=== PATIENT | male | born 1980 | race Two or more races ===

== ENCOUNTER 2021-08-05 06:30 | Emergency (ER) | payer OTHER, SELFPAY ==
[2021-08-05 06:45] VITALS: BP 148/87; PULSE 78; RESP 16; TEMP 37.1; O2SAT 96; BMI 36.6
--- NOTE | 2021-08-05 08:24 | ED.EAR ---
HPI - Ear Problem General Chief complaint: Ear Problems Stated complaint: R/L Ear Infection Time Seen by Provider: 08/05/21 08:24 Source: patient Mode of arrival: ambulatory Limitations: no limitations History of Present Illness HPI Narrative: 40-year-old male presents to the ER with bilateral ear pain that has been worsening for the last 5 days. He also reports some bilateral mild hearing loss, sounds a little bit muffled. He has a generalized headache and some nasal congestion as well. He denies any ear discharge. No recent swimming. No fever or chills. MD Complaint: ear pain Location: bilateral Duration: constant Severity: moderate Relieving factors: nothing Exacerbating factors: chewing, position of head and palpation Discharge from ear: no Associated symptoms ear: decreased hearing, headache and external ear tenderness Treatment prior to arrival: none Related Data Previous Rx's Medication Instructions Recorded amoxicillin 875 mg tablet 875 mg PO BID #14 tab 08/05/21 ciprofloxacin 0.2 %-hydrocortisone 3 drp OTIC (EARS) BID 7 Days #10 ml 08/05/21 1 % ear drops,suspension (Cipro HC) ibuprofen 800 mg tablet 800 mg PO Q8H PRN #14 tab 08/05/21 Allergies Allergy/AdvReac Type Severity Reaction Status Date / Time No Known Allergies Allergy Verified 08/05/21 08:29 Review of Systems Review of Systems: Constitutional: No Fever, No Chills ENT/Mouth: + sore throat, + Rhinorrhea, No Swallowing Difficulty, +Ear pain, +Hearing loss, No nasal discharge Eyes: No Eye Pain, No Swelling, No Redness Cardiovascular: No Chest Pain, No SO Respiratory: + Cough, No Sputum Gastrointestinal: No Nausea, No Vomiting Musculoskeletal: No joint pain, No Myalgias Neuro: No Weakness, No Numbness, No Dizziness, + Headache Heme/Lymph: No Bruising, + Lymphadenopathy PMFSH Past Medical History Attestation statement: The following information was validated with the patient. Medical History (Updated 08/05/21 @ 08:32 by RICHAR Bradford) No known health problems Social History Social History Advance Directives: No Advance Directives Information Provided: No Physical Exam Vital Signs: Vital Signs: Last Vital Signs Temp 98.8 F 08/05/21 06:45 Pulse 78 08/05/21 06:45 Resp 16 08/05/21 06:45 BP 148/87 H 08/05/21 06:45 Pulse Ox 96 08/05/21 06:45 Body Mass Index 36.6 Appearance: Alert. Oriented X3. No acute distress. Eyes: Pupils equal, round and reactive to light. ENT: Pharynx with moderate generalized erythema, tonsillar swelling without exudate, uvula midline. bilateral EAC's are swollen, tender and erythematous but patent. Bilateral TM's are erythematous, bulging with effusion present. loss of landmarks bilaterally. Nasal turbaintes are erythematous and swollen. Neck: Normal inspection. Neck supple. Palpable postauricular lymphadenopathy noted bilaterally CVS: Normal heart rate and rhythm. Pulses normal. Respiratory: No respiratory distress. Breath sounds normal. Skin: Skin warm and dry. Normal skin color. Normal skin turgor. No rashes. Extremities: No lower extremity edema. Neuro: Oriented X 3. Grossly nonfocal. Course Course Course Narrative: 40-year-old male presenting with bilateral ear pain for the last 4-5 days. His exam is consistent with bilateral acute otitis externa as well as otitis media. No need for a wick as his canals are patent. Will treat with both topical and oral antibiotics for 1 week. He is encouraged follow-up with his primary care doctor. He was advised not to get any water in his ears. Stable for discharge home. Discharge Plan Discharge Clinical Impression: Otitis externa Qualifiers: Otitis externa type: diffuse Chronicity: acute Laterality: bilateral Qualified Code(s): H60.313 - Diffuse otitis externa, bilateral Otitis media Qualifiers: Otitis media type: suppurative Chronicity: acute Laterality: bilateral Recurrence: non-recurrent Spontaneous tympanic membrane rupture: without spontaneous rupture Qualified Code(s): H66.003 - Acute suppurative otitis media without spontaneous rupture of ear drum, bilateral Patient Disposition: Home, Self-Care Instructions: Otitis Externa (ED), Ear Infection (ED) Additional Instructions: Take the prescribed antibiotics as directed. Use the prescribed antibiotic drops in her ears two time per day for one week. Do not get any water in your ears. Follow up with your doctor in 1 week. If you develop new or worsening symptoms call 911 or come back to the ER for further evaluation. Prescriptions: New amoxicillin 875 mg tablet 875 mg PO BID Qty: 14 RF: 0 Cipro HC 0.2-1 % drops,suspension 3 drp otic (ears) BID 7 Days Qty: 10 RF: 0 ibuprofen 800 mg tablet 800 mg PO Q8H PRN (Reason: pain) Qty: 14 RF: 0 Stand Alone Forms: Work/School Release Interventions: ED Discharge Assessment Last Done: 08/05/21 08:45 Discharge Date/Time: 08/05/21 08:50
== END 2021-08-05 08:50 | disposition home or self-care (01) ==
LOC: HO.ED 08:42
PROVIDERS: Emergency Provider Emergency Medicine Emergency Medical Services
DX: H60.313 Diffuse otitis externa, bilateral (principal); H66.003 Acute suppurative otitis media without spontaneous rupture of ear drum, bilateral; H92.03 Otalgia, bilateral; Z79.899 Other long term (current) drug therapy
CPT/HCPCS: 99283

== ENCOUNTER 2023-05-02 14:28 | Outpatient (AMB) | payer OTHER, SELFPAY ==
--- NOTE | 2023-05-02 14:46 | AM.OFFWIN_ITS ---
Intake Vital Signs 05/02/23 14:49 BP 130/80 Blood Pressure Location Lt brachial Position Sitting Pulse 89 Pulse Source Pulse Oximeter Temp 98 F Temp Source Temporal Artery Scan Pulse Oximetry (%) 98 Oxygen Delivery Method Room Air Intake Visit Reasons: EP pain in waist/lower back (lobby) Intake Note: Pt is here c/o lower back and waist pain. Pt states he had two fractures in his right foot years ago and now feels like he may have irritated the fracture. Pt states he has been in pain for two weeks. Pt states he has never had back pain like he does now. Patient Tobacco Use Status: Never used Tobacco Allergies No Known Allergies Allergy (Verified 05/02/23 14:49) Do you need a note to return to daycare/school/sports/work: No HPI EP pain in waist/lower back (lobby) HPI Details Patient presents with pain in his right lateral leg. He describes it as starting in his calf and shooting up to his waist. He denies low back pain he does point to the buttocks is of area of pain as well along the lateral hip, knee and calf. He notes remote history of foot fracture there is no surgery done. 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 [facility] Medical History (Updated 08/06/21 @ 00:02 by Background Shayna) No known health problems Social History Patient Tobacco Use Status: Never used Tobacco Review of Systems Const Reports as per HPI and Reports no additional complaints Musc Reports no additional complaints and Reports as per HPI Skin/Breast Denies lesions Neuro Reports no additional complaints and Reports as per HPI Physical Exam Vital Signs: Last Vital Signs Temp 98 F 05/02/23 14:49 Pulse 89 05/02/23 14:49 BP 130/80 05/02/23 14:49 Pulse Ox 98 05/02/23 14:49 Oxygen Delivery Method Room Air 05/02/23 14:49 Const General: cooperative, comfortable and no acute distress Orientation/consciousness: patient oriented x3 Resp Effort & Inspection: normal respiratory effort Auscultation: clear to auscultation bilaterally Cardio Rate: regular rate Rhythm: regular rhythm Heart sounds: S1 normal heart sound present and S2 normal heart sound present General: Yes no CVA tenderness Back/Spine/Pelvis Back: no CVA tenderness Thoracic/Lumbar Spine: thoracic and lumbar spine normal to inspection, thoraco- lumbar ROM normal, straight leg raise negative bilaterally and No paraspinal muscle tenderness Pelvis: sciatic notch tenderness on the right (Mild) Skin General skin exam: no rashes or lesions noted Neuro General: patient oriented x3 Extrem General: Yes normal to inspection and Yes full ROM Right lower extremity: normal to inspection, full ROM, normal capillary refill, hip/thigh (Mild GT tenderness), knee (Mild lateral knee tenderness patient points to posterior knees area of pain) Details: normal ROM and knee ligament exam normal; no swelling and lower leg Details: normal to inspection and no edema; no erythema, no tenderness and no localized swelling; no cyanosis, no edema and joint enlargement noted Assessment & Plan Assessment & Plan (1) Leg pain, lateral: Code(s): M79.606 - Pain in leg, unspecified Qualifiers: Laterality: right Qualified Code(s): M79.604 - Pain in right leg Plan: Pain seems to be overuse related or tendinitis of such 1 of the lateral tendons of the lower extremity. Will start him on a course of ibuprofen along with phy sical therapy. Follow-up with PCP if symptoms do not improve. Orders: Orders PT Evaluation and Treatment Today M79.606 - Pain in leg, unspecified Medications: New ibuprofen TID x 3 weeks for left knee pain then PRN thereafter for pain 800 mg PO TID 90 tabs 0RF Coding Level of Care Code Est Pt Level 3 (00249) Diagnoses Leg pain, lateral M79.604 Laterality: right
[2023-05-02 14:49] VITALS: BP 130/80; PULSE 89; TEMP 36.6; O2SAT 98
== END 2023-05-02 15:07 | disposition home or self-care (01) ==
PROVIDERS: Visit Provider Physician Assistant
DX: M79.604 Pain in right leg (principal)
CPT/HCPCS: 99213

== ENCOUNTER 2023-07-31 13:42 | Emergency (ER) | payer OTHER, SELFPAY ==
--- NOTE | ~2023-07-31 | XR_ITS ---
EXAMINATION: XR ANKLE, LEFT CLINICAL INFORMATION: Pain, fall COMPARISON: None available. TECHNIQUE: AP, lateral, and mortise views of the left ankle. FINDINGS: There is soft tissue swelling over the lateral malleolus. On the oblique view, there is question of a small chip fracture off the lateral malleolus medially projected over the lateral gutter of the ankle mortise. Joint spaces are within normal limits. There is a small ankle joint effusion. Posterior plantar calcaneal spur and Achilles enthesophyte are noted. XR/XR ankle LT min 3V IMPRESSION: 1. Question of small chip fracture off the lateral malleolus medially projected over the lateral gutter of the ankle mortise. 2. Small ankle joint effusion.
--- NOTE | ~2023-07-31 | XR_ITS ---
EXAMINATION: XR FOOT, LEFT CLINICAL INFORMATION: Trauma. Pain. COMPARISON: None available. TECHNIQUE: AP, lateral, and oblique views of the left foot. FINDINGS: There is no acute abnormality. No fracture. No dislocation. Joint spaces are normal. Small plantar calcaneal spur. Small spur at the posterior calcaneus at the insertion of the Achilles tendon. XR/XR foot LT min 3V IMPRESSION: No acute abnormality of the foot.
[2023-07-31 14:08] VITALS: BP 130/79; PULSE 75; RESP 18; TEMP 36.7; O2SAT 76; BMI 38.4
[2023-07-31 15:33] VITALS: PULSE 67; RESP 18; O2SAT 98
--- NOTE | 2023-07-31 15:33 | ED_ITS ---
HPI - Extremity Injury (Lower) General Chief Complaint: Extremity Injury, Lower Stated Complaint: L ankle injury,cracked Time Seen by Provider: 07/31/23 15:32 Source: patient, RN notes reviewed and old records reviewed Mode of arrival: ambulatory History of Present Illness HPI Narrative: 42-year-old male with no significant past medical history presenting to the ED complaining of left ankle pain s/p twisting while at work [employer]. Reports accidentally stepped in ditch. Denies fall all the way to ground, head trauma or LOC. reports associated paresthesias. Denies weakness with even MD complaint: ankle injury Related Data Previous Rx's Medication Instructions Recorded ibuprofen 800 mg tablet 800 mg PO TID #90 tabs 05/02/23 Allergies Allergy/AdvReac Type Severity Reaction Status Date / Time No Known Allergies Allergy Verified 05/02/23 14:49 Review of Systems 2 Review of Systems: Constitutional: No Fever, No Chills ENT/Mouth: No Ear Pain, No Nasal Congestion, No sore throat, No Rhinorrhea, No Swallowing Difficulty Cardiovascular: No Chest Pain, No SOB Respiratory: No Cough Gastrointestinal: No Nausea, No Vomiting, No Abdominal pain Musculoskeletal: + joint pain, No Myalgias, + Joint Swelling Skin: No Skin Lesions, No rash Neuro: No Weakness, No Numbness, No Paresthesias, no head trauma, no LOC Yes all other systems are reviewed and are negative Constitutional: Constitutional: Reports as per HPI [facility] Past Medical History Attestation statement: The following information was validated with the patient. Source: old records reviewed Medical History No known health problems Social History Social History Patient Tobacco Use Status: Never used Tobacco Smoked in Last 30 Days: No Use of substances other than those prescribed or required for medical reasons: No Advance Directives: No Advance Directives Information Provided: No Physical Exam Vital Signs: Vital Signs: Last Vital Signs Temp 98 F 07/31/23 16:43 Pulse 63 07/31/23 16:43 Resp 18 07/31/23 16:43 BP 146/86 H 07/31/23 16:43 Pulse Ox 97 07/31/23 16:43 O2 Del Method Room Air 07/31/23 16:43 BMI result Body Mass Index 38.4 Const: General: cooperative, healthy appearing and no acute distress Orientation/consciousness: patient oriented x3 Limitations: no limitations HEENT: Head: Yes normal to inspection and Yes atraumatic Ears: hearing grossly normal bilaterally General nose exam: Normal external nose present Face and sinus: Yes normal facial exam Eyes: General: appearance normal, both eyes and all related structures EOM: EOMs intact bilaterally Neck: Neck: Yes normal visual inspection and Yes no meningeal signs Resp: Effort & Inspection: normal respiratory effort and no respiratory distress Cardio: Rate: regular rate Peripheral pulses: popliteal pulses present GI: Inspection: Yes normal to inspection Palpation (GI): Soft to palpation, nontender, no guarding and not rigid : General: Yes no CVA tenderness Back/Spine/Pelvis: Back: no CVA tenderness Skin: Rashes: no rashes Wounds: no wounds Neuro: General: patient oriented x3, tone normal and no meningeal signs Cranial nerves: Yes CN's II-XII intact bilaterally Gait exam (Neuro): Normal gait present Extrem: Other: Left ankle with mild swelling. Diffusely tender to palpation. Limited ROM secondary to pain. Proximal foot with tenderness to palpation. Neurovascularly intact. No crepitus. Knee nontender with full range of motion intact. Course Course Course Narrative: 1810--XR ankle LT min 3V IMPRESSION: 1. Question of small chip fracture off the lateral malleolus medially projected over the lateral gutter of the ankle mortise. 2. Small ankle joint effusion. > patient placed in walking boot. Recommended orthopedic follow-up XR foot LT min 3V IMPRESSION: No acute abnormality of the foot. Results discussed with patient including worrisome signs and symptoms and strict return precautions, and when to return to the emergency department. They verbalized understanding and feel safe for discharge at this time. Medical Decision Making Medical Decision Making MDM Narrative: 42-year-old male with no significant past medical history presenting to the ED complaining of left ankle pain s/p twisting while at work [employer]. On exam vital signs stable, NAD, nontoxic appearing, physical exam as noted above. Concern for ankle sprain versus fracture. Low suspicion for septic joint/arthritis Plan: X-rays Please refer to course for remaining clinical decision making, interpretation of labs/imaging results, and discussions with consultants and/or family members. Differential Diagnosis Differential Diagnoses: The differential diagnosis associated with the presentation includes As above Admission/Observation Consideration of admission/observation: Escalation of care including admission/observation considered Lab Data MDM Lab Attestation statement: I reviewed the patient's lab results. Independent Interpretation I performed an independent interpretation of an: Plain X-Ray Radiology Impression Discussion of test interpretation with radiology: I have reviewed the radiologist's reading. External Record Review External record reviewed: Inpatient record, Office record, Outpatient record, Prior outpatient labs, Prior outpatient radiology, Primary care record and Outside ED record Tests considered The following testing was considered but not selected: As above Prescription Management I considered prescription management with: Pain Medication Discharge Plan Discharge Clinical Impression: Lateral malleolar fracture Patient Disposition: Home, Self-Care Instructions: Ankle Fracture (DC) Additional Instructions: You have a small chip fracture off your lateral ankle. Please wear walking boot at all times, you may take off only to shower and sleep Please call orthopedics for follow-up next week. Ice and elevate. Take Tylenol and Motrin. If symptoms persist or worsen or pain is unbearable return to the ED Prescriptions: No Action ibuprofen 800 mg tablet 800 mg PO TID Qty: 90 0RF Rx Instructions: TID x 3 weeks for left knee pain then PRN thereafter for pain Referrals: [facility] [Provider Group] - 1 week
[2023-07-31 16:43] VITALS: BP 146/86; PULSE 63; RESP 18; TEMP 36.6; O2SAT 97
== END 2023-07-31 18:35 | disposition home or self-care (01) ==
PROVIDERS: Emergency Provider Student in an Organized Health Care Education/Training Program
DX: S82.62XA Displaced fracture of lateral malleolus of left fibula, initial encounter for closed fracture (principal); W18.42XA Slipping, tripping and stumbling without falling due to stepping into hole or opening, initial encounter; Y93.9 Activity, unspecified; Y92.9 Unspecified place or not applicable; Y99.0 Civilian activity done for income or pay
CPT/HCPCS: 73610; 73630; 99284

== ENCOUNTER 2023-08-14 14:28 | Outpatient (AMB) | payer OTHER, SELFPAY ==
--- NOTE | 2023-08-14 14:30 | MHC.PC.OV ---
Vital Signs 08/14/23 14:33 Height 5 ft 10 in Weight 266 lb BMI 38.2 BP 138/80 Blood Pressure Location Rt brachial Position Sitting Pulse 78 Pulse Source Pulse Oximeter Pulse Oximetry (%) 98 Oxygen Delivery Method Room Air Intake Visit Reasons: NPV-requesting phy Allergies No Known Allergies Allergy (Verified 08/14/23 14:33) Medication List - Last Reconciled 08/14/23 by MABEL López ibuprofen 800 mg PO TID Tobacco use date assessed: 08/14/23 Dental Screening Dental Screen Date: 08/14/23 Did you have a dental visit in the last 12 months?: No Did you have a dental problem in the last 6 months where you did not have access to dental care?: No Was dental information given to patient?: No HPI NPV-requesting phy HPI Details New pt is here for a PE. Will order labs. Pt's father was diagnosed with prostate cancer at age 60. Will order PSA. Denies dribbling with urination, weak stream, and frequent nocturia. [facility] Medical History No known health problems Social History Housing: House Patient Tobacco Use Status: Former Tobacco user e-Cigarette/Vaping Use: Never Used service: No Current occupational status: employed Cognitive needs: No Hearing needs: No Vision needs: No Questionnaire AUDIT C Alcohol Use Questionnaire (AUDIT-C) 1. How often do you have a drink containing alcohol?: Monthly or less 2. How many drinks containing alcohol do you have on a typical day when you are drinking?: 1 or 2 3. How often do you have six or more drinks on one occasion?: Never Total Score: 1 Score Reviewed/Action Taken: No Review of Systems Const Denies chills and Denies fever(s) Eyes Denies blurry vision ENT Denies vertigo, Denies dizziness and Denies sore throat Card Denies chest pain at rest, Denies chest pain with activity, Denies diaphoresis, Denies dyspnea and Denies dyspnea on exertion Resp Denies cough, Denies dyspnea, Denies dyspnea on exertion and Denies wheezing GI Denies abdominal pain, Denies melena, Denies hematochezia, Denies constipation, Denies diarrhea and Denies loose stools Denies hematuria Musc Denies numbness and Denies tingling Skin/Breast Denies lesions Neuro Denies vertigo, Denies dizziness, Denies numbness and Denies tingling Psych Denies anxiety, Denies depression, Denies homicidal ideation, Denies suicidal ideation and Denies other (substance abuse) Aller/Immun Denies wheezing Physical exam (Primary Care) Vital Signs: Last Vital Signs Pulse 78 08/14/23 14:33 BP 138/80 08/14/23 14:33 Pulse Ox 98 08/14/23 14:33 Oxygen Delivery Method Room Air 08/14/23 14:33 BMI result Body Mass Index 38.2 Tobacco/Smoking Status: Tobacco use Status Tobacco use date assessed 08/14/23 08/14/23 14:40 Patient Tobacco Use Status Former Tobacco user 08/14/23 14:40 e-Cigarette/Vaping Use Never Used 08/14/23 14:40 Const General: cooperative Nutritional Appearance: obese Orientation/consciousness: patient oriented x3 HENMT Head: Yes normal to inspection, Yes normocephalic and Yes atraumatic Ears: TM's normal bilaterally Eyes General: appearance normal, both eyes and all related structures Alignment and Position: alignment normal and position normal Neck Neck: Yes normal visual inspection and Yes no lymphadenopathy Thyroid: Thyroid normal Resp Effort & Inspection: normal respiratory effort Auscultation: clear to auscultation bilaterally Cardio Rate: regular rate Rhythm: regular rhythm Heart sounds: S1 normal heart sound present, S2 normal heart sound present and no murmurs GI Palpation (GI): Soft to palpation and nontender Auscultation: normal bowel sounds Male General Exam: Yes normal external exam Penis: normal penis Scrotum: scrotum normal, testes descended bilaterally and no inguinal hernias Testes: no testicular mass Skin Rashes: no rashes Neuro General: patient oriented x3, moves all extremities, no focal motor deficits and deep tendon reflexes 2+ bilaterally Romberg Test: Negative Extrem Other: orthopedic air cast to LLE Psych Appearance: grossly normal Mental Status: mental status grossly normal Speech and movement: Normal speech and movement present Affect: normal affect Attitude: cooperative Thought process: Normal thought process present Thought content: Normal thought content present Insight: Good insight present (Psych) Judgement: Good judgement present (Psych) Assessment and Plan Assessment & Plan (1) Physical exam: Code(s): Z00.00 - Encounter for general adult medical examination without abnormal findings Plan: Labs ordered (2) Screening PSA (prostate specific antigen): Code(s): Z12.5 - Encounter for screening for malignant neoplasm of prostate Plan: PSA ordered Plan The patient agreed to the use of a medical device engineer for this encounter. Scribed for TOMMY Cobb-LUPE by Zhane Porras medical device engineer, on 08/14/2023 at 14:50 EST. Orders: Orders Comprehensive [place]. Panel Fast Today Z00.00 - Encounter for general adult medical examination without abnormal findings Lipid Panel Today Z00.00 - Encounter for general adult medical examination without abnormal findings Complete Blood Count Auto Diff Today Z00.00 - Encounter for general adult medical examination without abnormal findings TSH reflex Free T4 Today Z00.00 - Encounter for general adult medical examination without abnormal findings UA CC w/rflx Micro + Cult Today Z00.00 - Encounter for general adult medical examination without abnormal findings Prostate Specific Antigen Scr Today Z12.5 - Encounter for screening for malignant neoplasm of prostate Coding Level of Care Code New Pt Prev Care 40-64y(07573) Diagnoses Physical exam Z00.00 Screening PSA (prostate specific antigen) Z12.5
[2023-08-14 14:33] VITALS: BP 138/80; PULSE 78; O2SAT 98; BMI 38.2
== END 2023-08-14 15:04 | disposition home or self-care (01) ==
PROVIDERS: Visit Provider Nurse Practitioner Family
DX: Z00.00 Encounter for general adult medical examination without abnormal findings (principal); Z12.5 Encounter for screening for malignant neoplasm of prostate
CPT/HCPCS: 99386

== ENCOUNTER 2023-08-15 08:28 | Outpatient (AMB) | payer OTHER, SELFPAY ==
--- NOTE | 2023-08-15 08:29 | A.OFFVIS_ITS ---
Intake Intake Visit Reasons: fc- Lt Lateral malleolar fracture Intake Note: Caity is a 42 year old male who presents today for a evaluation for his left ankle pain, DOI 07/31/23. Patient reports he stepped in ditch. He states that his injury was a work related injury claim #[id number]. Patient reports having some numbness on the lateral aspect of his foot. He has been taking pain medication which is provding him with relief. Allergies No Known Allergies Allergy (Verified 08/15/23 08:36) HPI fc- Lt Lateral malleolar fracture HPI Details 42-year-old male who presents in the off ice today for an evaluation of left ankle pain. The patient presented to the ED on 07/31/2023 status post twisting his ankle while at work after stepping in a ditch. X-rays of the left ankle were obtained. He was placed in a walking boot and referred to orthopedics. While in the office today the patient reports some numbness on the lateral aspect of the left foot. He confirms taking pain medication which is providing him with relief. [facility] Medical History No known health problems Social History Housing: House Patient Tobacco Use Status: Former Tobacco user e-Cigarette/Vaping Use: Never Used service: No Current occupational status: employed Cognitive needs: No Hearing needs: No Vision needs: No Review of Systems Const All systems reviewed & are unremarkable except as noted in HPI and below Physical Exam Const General: cooperative and no acute distress Orientation/consciousness: patient oriented x3 Resp Effort & Inspection: normal respiratory effort and able to speak in complete se ntences Cardio Peripheral pulses: Peripheral pulses 2+ throughout Skin General skin exam: no rashes or lesions noted Neuro General: patient oriented x3 Extrem Other: Left ankle: Lateral malleolus edema accompanied by tenderness to palpation. No tenderness to palpation over the medial malleolus. Able to dorsiflex and plantarflex with out difficulties. Sensation intact. Pedal pulse intact. Assessment & Plan Assessment & Plan (1) Left ankle sprain: Code(s): S93.402A - Sprain of unspecified ligament of left ankle, initial encounter Qualifiers: Encounter type: initial encounter Involved ligament of ankle: unspecified ligament Qualified Code(s): S93.402A - Sprain of unspecified ligament of left ankle, initial encounter Plan Mr. Ramires is a 42-year-old male who presents in the office today for an evaluation of left ankle pain. The patient presented to the ED on 07/31/2023 status post twisting his ankle while at work after stepping in a ditch. X-rays of the left ankle were obtained. He was placed in a walking boot and referred to orthopedics. While in the office today the patient reports some numbness on the lateral aspect of the left foot. He confirms taking pain medication which is providing him with relief. The patient was given a short walking boot in the ED, however, this is typically used to treat foot injuries. Therefore, the patient was given a tall walking boot, off the shelf, while in the office today. He will work with physical therapy. He was given an out of work note until follow up. Follow up will be in 4 weeks, or sooner if needed. X-rays of the left ankle, obtained on 07/31/2023, revealed: 1. Question of small chip fracture off the lateral malleolus medially projected over the lateral gutter of the ankle mortise. 2. Small ankle joint effusion. Orders: Orders PT Evaluation and Treatment Today S93.402A - Sprain of unspecified ligament of left ankle, initial encounter Patient Instructions: Scribed for Elba Alford PA-C by Inés Rodarte center medical and lab director, on 08/15/2023 at 8:29 am, EST. Coding Level of Care Code New Pt Level 4 (94712) Diagnoses Sprain of left ankle, unspecified ligament, initial encounter S93.402A Encounter type: initial encounter Involved ligament of ankle: unspecified ligament
== END 2023-08-15 09:13 | disposition home or self-care (01) ==
PROVIDERS: Visit Provider Physician Assistant
DX: S93.402A Sprain of unspecified ligament of left ankle, initial encounter (principal)
CPT/HCPCS: 99203

== ENCOUNTER → 2023-08-15 08:28 | Outpatient (BNVA) | payer OTHER, SELFPAY | PROVIDERS: Visit Provider Physician Assistant | DX: S93.402A Sprain of unspecified ligament of left ankle, initial encounter (principal) | CPT/HCPCS: 99202 ==

== ENCOUNTER 2023-08-18 09:39 | Outpatient (REF) | payer OTHER, SELFPAY ==
[2023-08-18 11:22] LABS: MANUAL DIFF FLAG NO
[2023-08-18 11:26] LABS: Basophils Percent Auto 0.6 % (0-2); Eosinophils Absolute Auto 0.2 X10*3/uL (0.0-0.4); Eosinophils Percent Auto 2.9 % (0-4); Hematocrit 44.1 % (42.0-52.0); Hemoglobin 14.6 g/dl (14.0-18.0); Imm Gran Abs Auto 0.02 X10*3/uL (0.00-0.03); Imm Gran Pct Auto 0.3 % (0.0-0.4); Lymphocytes Absolute Auto 1.8 X10*3/uL (1.2-4.9); Lymphocytes Percent Auto 29.3 % (20-40); Mean Corpuscular HGB Conc 33.1 g/dl (31.0-36.0); Mean Corpuscular Hemoglobin 28.5 pg (27.0-33.0); Mean Platelet Volume 12.4 fL (9.4-12.4); Monocytes Absolute Auto 0.6 X10*3/uL (0.1-1.2); Neutrophils Absolute Auto 3.6 x10*3/uL (2.0-8.3); Neutrophils Percent Auto 57.9 % (45-73); Platelet Count 239 X10*3/uL (160-400); Red Blood Count 5.13 X10*6/uL (4.60-5.80); Red Cell Distribution Width 12.9 % (11.0-16.0); White Blood Count 6.2 X10*3/uL (4.8-10.8)
[2023-08-18 12:34] LABS: Alanine Aminotransferase 38 U/L (0-40); Albumin Level 4.5 g/dL (3.5-5.0); Alkaline Phosphatase 64 U/L (39-117); Anion Gap 14 (12-20); Aspartate Amino Transferase 33 U/L (5-37); Bilirubin Total 0.3 mg/dL (0.0-1.0); Blood Urea Nitrogen 12 mg/dL (9-16); Calcium 9.3 mg/dL (8.4-10.2); Carbon Dioxide 27 mmol/L (22-29); Chloride 102 mmol/L (96-108); Cholesterol 235 mg/dL (<200); Estimated Glomerular Filt Rate > 60; Glucose Fasting 98 mg/dL (60-99); HDL Cholesterol 44 mg/dL (>40); LDL Cholesterol Calculated 157 mg/dL (<100); Potassium 3.9 mmol/L (3.3-5.1); Sodium 139 mmol/L (135-145); TSH reflex Free T4 2.58 uIU/mL (0.32-4.0); Total Protein 7.7 g/dL (6.5-8.0); Triglycerides 173 mg/dL (<150)
[2023-08-18 13:14] LABS: Appearance Urine Clear; Color Urine Yellow; Glucose Urine UA Negative (Negative); Leukocyte Esterase Urine Negative (Negative); Nitrite Urine Negative (Negative); PH 5.5 (5.0-9.0); Urine Blood Negative (Negative); Urine Ketones Negative (Negative); Urine Protein Negative (Neg-Trace)
== END 2023-08-18 09:40 | disposition home or self-care (01) ==
LOC: HO.HMGCLDS 09:39
PROVIDERS: PCP Nurse Practitioner Family; Visit Provider Nurse Practitioner Family
DX: Z00.00 Encounter for general adult medical examination without abnormal findings (principal); Z12.5 Encounter for screening for malignant neoplasm of prostate; E78.5 Hyperlipidemia, unspecified; Z13.0 Encounter for screening for diseases of the blood and blood-forming organs and certain disorders involving the immune mechanism; Z13.29 Encounter for screening for other suspected endocrine disorder
CPT/HCPCS: 36415; 80053; 80061; 81003; 84153; 84443; 85025

== ENCOUNTER 2023-09-14 12:48 | Outpatient (AMB) | payer OTHER, SELFPAY ==
--- NOTE | 2023-09-14 13:12 | MHC.OFFVIS ---
Intake Vital Signs 09/14/23 13:13 Height 5 ft 10 in Weight 266 lb BMI 38.2 Intake Visit Reasons: ov- Lt Lateral malleolar fracture Intake Note: Caity 42 yr old male presents today for his follow up visit for his left ankle sprain. Patient states he is cont' to have on and off pain. Cont's to have swelling. States he feels like he is not ready to return to work . He started P.T yesterday. Allergies No Known Allergies Allergy (Verified 09/14/23 13:14) HPI ov- Lt Lateral malleolar fracture HPI Details 42-year-old male who presents in the office today for a follow up of a left ankle sprain, which occurred on 07/31/2023 status post twisting his ankle while at work after stepping in a ditch. The patient reports having intermittent pain. He rates his pain as a 7/10 while in the office today. He states the pain is when he points his toes down. He continues to have edema. At this time the patient does not feel he is ready to return to work. He states he has his first therapy session yesterday. He states his work consist of 12-14 hour work days. [facility] Medical History No known health problems Social History (Reviewed 09/14/23 @ 13:14 by Gisselle Glass [facility]) Housing: House Patient Tobacco Use Status: Former Tobacco user e-Cigarette/Vaping Use: Never Used service: No Current occupational status: employed Cognitive needs: No Hearing needs: No Vision needs: No Review of Systems Const All systems reviewed & are unremarkable except as noted in HPI and below Physical Exam Vital Signs: BMI result Body Mass Index 38.2 Const General: cooperative, healthy appearing and no acute distress Resp Effort & Inspection: normal respiratory effort and able to speak in complete sentences Cardio Rate: regular rate Peripheral pulses: Peripheral pulses 2+ throughout GI Palpation (GI): Soft to palpation Skin Lesions: no lesions Rashes: no rashes Extrem Other: Left ankle: Normal to inspection. Very slight limited ROM with inversion and eversion. Full dorsiflexion and plantarflexion. NVI. Assessment & Plan Assessment & Plan (1) Left ankle sprain: Code(s): S93.402A - Sprain of unspecified ligament of left ankle, initial encounter Qualifiers: Encounter type: initial encounter Involved ligament of ankle: unspecified ligament Qualified Code(s): S93.402A - Sprain of unspecified ligament of left ankle, initial encounter Plan Mr. Ramires is a 42-year-old male who presents in the office today for a follow up of a left ankle sprain, which occurred on 07/31/2023 status post twisting his ankle while at work after stepping in a ditch. The patient reports having intermittent pain. He rates his pain as a 7/10 while in the office today. He states the pain is when he points his toes down. He continues to have edema. At this time the patient does not feel he is ready to return to work. He states he has his first therapy session yesterday. He states his work consist of 12-14 hour work days. The patient will continue to work with physical therapy. I explained to the patient that he can have edema for up to a year after the injury. The goal will be to begin to wean out of the boot in the next two weeks. He was given an out of work note until follow up. Follow up will be in 4 weeks, or sooner if needed. X-rays of the left ankle which were obtained while in the office today and were reviewed by me, Elba Alford PA-C, revealed routine healing of a chip fracture in the left ankle. Orders: Orders XR ankle LT min 3V Today M25.579 - Pain in unspecified ankle and joints of unspecified foot Patient Instructions: Scribed for Elba Alford PA-C by Inés Rodarte medical communication specialist, on 09/14/2023 at 12:50 pm, EST. Coding Level of Care Code Est Pt Level 3 (71842) Diagnoses Sprain of left ankle, unspecified ligament, initial encounter S93.402A Encounter type: initial encounter Involved ligament of ankle: unspecified ligament
[2023-09-14 13:13] VITALS: BMI 38.2
== END 2023-09-14 13:17 | disposition home or self-care (01) ==
PROVIDERS: Visit Provider Physician Assistant
DX: S93.402A Sprain of unspecified ligament of left ankle, initial encounter (principal)
CPT/HCPCS: 99213

== ENCOUNTER 2023-09-14 12:48 | Outpatient (REF) | payer OTHER, SELFPAY ==
--- NOTE | ~2023-09-14 | XR_ITS ---
EXAMINATION: XR ANKLE, LEFT CLINICAL INFORMATION: Pain COMPARISON: None available. TECHNIQUE: AP, lateral, and mortise views of the left ankle. FINDINGS: No soft tissue swelling or joint effusion. Lateral malleolar chip fracture or questionable previous study not identified currently. Calcaneal spurring and Achilles enthesopathy again noted. XR/XR ankle LT min 3V IMPRESSION: No acute bony pathology.
== END 2023-09-14 12:49 | disposition home or self-care (01) ==
LOC: HO.HOSX 12:48
PROVIDERS: Visit Provider Physician Assistant
DX: S93.402A Sprain of unspecified ligament of left ankle, initial encounter (principal)
CPT/HCPCS: 73610; 99212

== ENCOUNTER 2023-09-19 11:00 | Outpatient (RCR) | payer OTHER, SELFPAY ==
--- NOTE | 2023-09-13 11:53 | MHC.PT.EP ---
[facility] [place] [facility] [place] Office [place] Office [address] [phone] F: [phone] F: [phone] F: [phone] F: [phone] Physical Therapy Plan of Care Date of Evaluation: 09/13/23 Date of Surgery: Diagnosis: Left ankle sprain Assessment: Patient is a 42 year old R handed male who presents with s/s consistent with L ankle sprain/pain. He presents in a high boot. 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 Patient past medical history is otherwise unremarkable. Current impairments include pain, posture, balance, ROM, strength, activity tolerance and functional mobility. Functional limitations include decreased ability to walk, stand, negotiate stairs, lift and carry. Patient is motivated with good rehab potential. Skilled PT will address impairments and functional limitations in order to achieve goals. Frequency and Duration: The patient will be seen 2x/week for 4 weeks Short Term Goals: I with HEP - 2 weeks SLB > 30 - 2 weeks HR single leg 30x - 1 minutes - 2 weeks Fdc Goals: Swelling absent - 4 weeks Strength 5/5 grossly - 4 weeks pain free return to all work activities - 4 weeks LEFS 72/80 - 4 weeks Treatment Plan: Modalities to reduce pain, spasms and effusion. Manual therapy to restore motion and function. Therapeutic exercise to improve strength and flexibility. Neuromuscular re-education for posture and balance. Therapeutic activities to return to functional activities of daily living. Electronically signed by: Tre Cristobal, PT Please sign and return to therapist. Thank you for your referral.
--- NOTE | 2023-10-31 10:58 | MHC.PT.DC ---
[facility] [place] Office [place] Office [place] Office [address] [phone] F: [phone] F: [phone] F: [phone] F: [phone] Physical Therapy Discharge Report Diagnosis: Left ankle sprain Date of Surgery: Date of Evaluation: 09/13/23 Date of Discharge: 10/01/23 Treatments to Date: 2 Cancellations to Date: No Shows to Date: Discharge Status: Independent with HEP Patient Elected to Stop Discharge Summary: Pt elected to stop PT after last visit. 09/19/23: pt progressing well with skilled PT. ROM and strength improving. encouraged him to use boot less and bring shoe next visit. educated him in importance of consistency with HEP. Patient is a 42 year old R handed male who presents with s/s consistent with L ankle sprain/pain. He presents in a high boot. 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 Patient past medical history is otherwise unremarkable. Current impairments include pain, posture, balance, ROM, strength, activity tolerance and functional mobility. Functional limitations include decreased ability to walk, stand, negotiate stairs, lift and carry. Patient is motivated with good rehab potential. Skilled PT will address impairments and functional limitations in order to achieve goals. Electronically signed by: Tre Cristobal, PT Please sign and return to therapist. Thank you for your referral.
== END 2023-10-31 10:58 | disposition home or self-care (01) ==
LOC: HO.PTCHIC 11:00
PROVIDERS: PCP Nurse Practitioner Family; Visit Provider Physician Assistant
DX: S93.402A Sprain of unspecified ligament of left ankle, initial encounter (principal)
CPT/HCPCS: 97110; 97161

== ENCOUNTER 2023-10-19 11:04 | Outpatient (REF) | payer OTHER, SELFPAY ==
--- NOTE | ~2023-10-19 | XR_ITS ---
EXAMINATION: XR ANKLE, LEFT CLINICAL INFORMATION: Left ankle pain COMPARISON: Left ankle x-rays on 09/14/2023 TECHNIQUE: AP, lateral, and mortise views of the left ankle. FINDINGS: BONES: Bony structures are intact. Sharp dorsal and plantar calcaneal spurs are present. There is no focal bone destruction or periosteal reaction seen. JOINTS: Alignment of joints is normal. SOFT TISSUE: Soft tissue is normal. No radiopaque foreign body or abnormal air collection is seen. XR/XR ankle LT min 3V IMPRESSION: 1. Unchanged sharp Calcaneal spurs. 2. No evidence of fracture or dislocation of left ankle.
== END 2023-10-19 11:05 | disposition home or self-care (01) ==
LOC: HO.HOSX 11:04
PROVIDERS: Visit Provider Physician Assistant
DX: S93.402A Sprain of unspecified ligament of left ankle, initial encounter (principal)
CPT/HCPCS: 73610; 99212

== ENCOUNTER 2023-10-19 15:13 | Outpatient (AMB) | payer OTHER, SELFPAY ==
--- NOTE | 2023-10-19 15:28 | MHC.OFFVIS ---
Intake Vital Signs 10/19/23 15:29 Height 5 ft 10 in Weight 266 lb BMI 38.2 Intake Visit Reasons: OV- Lt Lateral malleolar fracture-follow up Intake Note: Caity 42 yr old male presents today for his follow up visit for his left ankle sprain, 07/31/23. Patient states he only attended to 3 P.T sessions due to becoming sick. Currently states he cont's to have pain and swelling. Cont's to use his cam walker boot. Allergies No Known Allergies Allergy (Verified 10/19/23 15:33) HPI OV- Lt Lateral malleolar fracture-follow up HPI Details 42-year-old male who presents in the office today for a follow up of a left ankle sprain, which occurred on 07/31/2023 status post twisting his ankle while at work after stepping in a ditch. I last saw the patient in the office on 09/14/2023 where he was instructed to continue to work with physical therapy and his goal was to wean out of the walking boot into a supportive sneaker. He was also to remain out of work until follow up. While in the office today the patient reports he has only attended 3 physical therapy sessions due to illness. He reports he continue to have pain and edema. He confirms his continued use of the cam walking boot. [facility] Medical History No known health problems Social History Housing: House Patient Tobacco Use Status: Former Tobacco user e-Cigarette/Vaping Use: Never Used service: No Current occupational status: employed Cognitive needs: No Hearing needs: No Vision needs: No Review of Systems Const All systems reviewed & are unremarkable except as noted in HPI and below Physical Exam Vital Signs: BMI result Body Mass Index 38.2 Const General: cooperative, healthy appearing and no acute distress Resp Effort & Inspection: normal respiratory effort and able to speak in complete sentences Cardio Rate: regular rate Peripheral pulses: Peripheral pulses 2+ throughout GI Palpation (GI): Soft to palpation Skin Lesions: no lesions Rashes: no rashes Extrem Other: Left ankle: Normal to inspection. Tenderness to plapation over the tibal and peroneal tendons. Mild-moderate limited ROM with inversion and eversion. Full dorsiflexion and plantarflexion. NVI. Assessment & Plan Assessment & Plan (1) Left ankle sprain: Code(s): S93.402A - Sprain of unspecified ligament of left ankle, initial encounter Qualifiers: Encounter type: initial encounter Involved ligament of ankle: unspecified ligament Qualified Code(s): S93.402A - Sprain of unspecified ligament of left ankle, initial encounter Plan Mr. Ramires is a 42-year-old male who presents in the office today for a follow up of a left ankle sprain, which occurred on 07/31/2023 status post twisting his ankle while at work after stepping in a ditch. I last saw the patient in the office on 09/14/2023 where he was instructed to continue to work with physical therapy and his goal was to wean out of the walking boot into a supportive sneaker. He was also to remain out of work until follow up. While in the office today the patient reports he has only attended 3 physical therapy sessions due to illness. He reports he continue to have pain and edema. He confirms his continued use of the cam walking boot. Unfortunately, the patient has only attend 2 physical therapy sessions since his last visit in the office. He has also remained in the boot. I feel this has contributed to his significant stiffness of the ankle and is causing him pain. I expressed to the patient that he should come out of the boot as soon as possible and work with physical therapy to regain his painless ROM. I have placed a new order for physical therapy while in the office today. Follow up will be in 4 weeks for a ROM check with anticipation of full ROM at follow up, or sooner if needed. X-rays of the left ankle which were obtained while in the office today and were reviewed by me, Elba Alford PA-C, revealed no acute fracture or dislocation. Orders: Orders XR ankle LT min 3V Today M25.579 - Pain in unspecified ankle and joints of unspecified foot PT Evaluation and Treatment Today S93.402A - Sprain of unspecified ligament of left ankle, initial encounter Patient Instructions: Scribed for Elba Alford PA-C by Inés Rodarte biomedical repair technician, on 10/19/2023 at 3:18 pm, EST. Coding Level of Care Code Est Pt Level 3 (21261) Diagnoses Sprain of left ankle, unspecified ligament, initial encounter S93.402A Encounter type: initial encounter Involved ligament of ankle: unspecified ligament
[2023-10-19 15:29] VITALS: BMI 38.2
== END 2023-10-19 15:50 | disposition home or self-care (01) ==
PROVIDERS: PCP Nurse Practitioner Family; Visit Provider Physician Assistant
DX: S93.402A Sprain of unspecified ligament of left ankle, initial encounter (principal); Z04.2 Encounter for examination and observation following work accident
CPT/HCPCS: 99213

== ENCOUNTER 2023-11-21 13:44 | Outpatient (AMB) | payer OTHER, SELFPAY ==
--- NOTE | 2023-11-21 13:49 | A.OFFVIS_ITS ---
Intake Vital Signs 11/21/23 13:51 Height 5 ft 10 in Weight 266 lb BMI 38.2 Intake Visit Reasons: OV - Left ankle sprain, DOI 07/31/23 Intake Note: Caity is a 42 year old male who presents today for a follow up of his left ankle sprain, DOI 07/31/23. Patient reports he feels like that nothing is helping him. He feels that PT is not giving him relief. Patient wants to know what else he can do to help him relief his pain and his swelling. Hx of icing and antiinflammatories with no relief. Allergies No Known Allergies Allergy (Verified 11/21/23 13:51) HPI OV - Left ankle sprain, DOI 07/31/23 HPI Details 42-year-old male who presents in the off ice today for a follow up of a left ankle sprain, which occurred on 07/31/2023 status post twisting his ankle while at work after stepping in a ditch. I last saw the patient on 10/19/2023 where he has only attended 2 physical therapy sessions and was still in the boot. I encouraged the patient that he needed to come out of the boot and to attend physical therapy to work on ROM. While in the office today the patient reports he has been unable to find relief in anything he has tried. He reports trying icing and anti-inflammatory medication with no relief. He also states physical therapy has not given him any relief. He would like to know what else he is able to do in get relief of his pain and edema. He reports a sharp stinging pain that is ongoing. He states the pain is aching. He states he was sick so he did not attend physical therapy. He states he tried to call them but they told him since he had not been seen in a month he was discharged from therapy. He did not contact our office to inform that he was unable to attend. He states he has an exercise bike at home that he has been using and working on home exercises on his own. Patient discharge from physical therapy at [facility] on 10/01/2023. Physical therapy report states he attended 2 sessions and elected to discontinue physical therapy after his last visit. He reports he has been out of work since the injury. 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 [facility] Medical History No known health problems Social History Housing: House Patient Tobacco Use Status: Former Tobacco user e-Cigarette/Vaping Use: Never Used service: No Current occupational status: employed Cognitive needs: No Hearing needs: No Vision needs: No Review of Systems Const All systems reviewed & are unremarkable except as noted in HPI and below Physical Exam Vital Signs: BMI result Body Mass Index 38.2 Const General: cooperative, healthy appearing and no acute distress Resp Effort & Inspection: normal respiratory effort and able to speak in complete sentences Cardio Rate: regular rate Peripheral pulses: Peripheral pulses 2+ throughout GI Palpation (GI): Soft to palpation Skin Lesions: no lesions Rashes: no rashes Extrem Other: Left ankle: Normal to inspection. Tenderness to plapation over the peroneal tendon. No limitations in ROM with inversion, eversion, dorsiflexion or plantarflexion. NVI. Assessment & Plan Assessment & Plan (1) Left ankle sprain: Code(s): S93.402A - Sprain of unspecified ligament of left ankle, initial encounter Qualifiers: Encounter type: initial encounter Involved ligament of ankle: unspecified ligament Qualified Code(s): S93.402A - Sprain of unspecified ligament of left ankle, initial encounter Plan Mr. Ramires is a 42-year-old male who presents in the office today for a follow up of a left ankle sprain, which occurred on 07/31/2023 status post twisting his ankle while at work after stepping in a ditch. I last saw the patient on 10/19/2023 where he has only attended 2 physical therapy sessions and was still in the boot. I encouraged the patient that he needed to come out of the boot and to attend physical therapy to work on ROM. While in the office today the patient reports he has been unable to find relief in anything he has tried. He reports trying icing and anti-inflammatory medication with no relief. He also states physical therapy has not given him any relief. He would like to know what else he is able to do in get relief of his pain and edema. He reports a sharp stinging pain that is ongoing. He states the pain is aching. He states he was sick so he did not attend physical therapy. He states he tried to call them but they told him since he had not been seen in a month he was discharged from therapy. He did not contact our office to inform that he was unable to attend. He states he has an exercise bike at home that he has been using and working on home exercises on his own. Patient discharge from physical therapy at [facility] on 10/01/2023. Physical therapy report states he attended 2 sessions and elected to discontinue physical therapy after his last visit. He reports he has been out of work since the injury. 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 We discussed that the treatment for the ankle sprain would be to return to physical therapy to work on ROM and strengthening. A new order has been placed while in the office today, which he has agreed to attend. However, due to the patient continuing to report ongoing pain and discomfort an order has been placed for an MRI for further evaluation of the integrity of the left ankle. He reports that at this time he continues to have pain which limits him from doing his work abilities. He is capable to sedentary work only but reports that he works in [place] loading and unloading trucks. He was given a work note stating we have ordered an MRI and will discuss return to work status after the MRI is obtained. Follow up will be after the MRI is obtained, or sooner if needed. He will need to contact our office once the MRI is scheduled to schedule his f/u appt. for MRI review. He understands and accepts. Orders: Orders PT Evaluation and Treatment Today S93.402A - Sprain of unspecified ligament of left ankle, initial encounter MR ankle LT wo con Today S93.402A - Sprain of unspecified ligament of left ankle, initial encounter Patient Instructions: Scribed by Inés Rodarte director medical science, for Elba Alford PA-C on 11/21/2023 at 1:50 pm, EST. Coding Level of Care Code Est Pt Level 3 (73336) Diagnoses Sprain of left ankle, unspecified ligament, initial encounter S93.402A Encounter type: initial encounter Involved ligament of ankle: unspecified ligament
[2023-11-21 13:51] VITALS: BMI 38.2
== END 2023-11-21 14:27 | disposition home or self-care (01) ==
PROVIDERS: PCP Nurse Practitioner Family; Visit Provider Physician Assistant
DX: S93.402A Sprain of unspecified ligament of left ankle, initial encounter (principal)
CPT/HCPCS: 99213

== ENCOUNTER → 2023-11-21 13:44 | Outpatient (BNVA) | payer OTHER, SELFPAY | PROVIDERS: PCP Nurse Practitioner Family; Visit Provider Physician Assistant | DX: S93.402A Sprain of unspecified ligament of left ankle, initial encounter (principal) | CPT/HCPCS: 99212 ==

== ENCOUNTER 2023-12-14 17:25 | Outpatient (REF) | payer OTHER, SELFPAY ==
--- NOTE | ~2023-12-14 | MR_ITS ---
EXAMINATION: MR ANKLE WITHOUT CONTRAST, LEFT CLINICAL INFORMATION: Left ankle pain, swelling, numbness, lump/mass. Injury on 07/31/2023. Pain and numbness since injury. COMPARISON: Multiple priors, most recent left ankle radiographs dated 10/19/2023. TECHNIQUE: MRI of the ankle was performed using routine sequences on a high-field scanner. FINDINGS: BONE AND ARTICULAR CARTILAGE: No acute fracture or dislocation. Ankle mortise is maintained. No marrow edema or evidence of acute osseous injury. Small focus of degenerative cystic change at the distal aspect of the lateral malleolus. No talar osteochondral lesion. Intact articular cartilage. Small plantar and dorsal calcaneal spurs. ACHILLES TENDON: Intact Achilles tendon. Mildly increased T2 signal within the distal soleus muscle, which could represent a mild strain. No measurable tear. OTHER TENDONS: The visualized flexor and extensor tendons are intact. No transverse tendon tear or tendon retraction. LIGAMENTS: No evidence of acute ligament injury. Heterogeneity of the deltoid ligament with slightly increased T2 signal, consistent with a remote sprain/partial tear. Deep to the distal insertion of the posterior tibialis tendon, there is a prominent focus of low-T1/low-T2 signal in the region of the tibionavicular ligament measuring up to 1.0 cm in ML dimension. No associated edema. Findings likely represent sequela of a remote ligament injury. JOINT FLUID AND SOFT TISSUES: No significant joint effusion. No abnormal soft tissue mass or fluid collection. PLANTAR FASCIA: Intact. SINUS TARSI AND TARSAL TUNNEL: Patent. MR/MR ankle LT wo con IMPRESSION: 1. No acute osseous injury. 2. Remote sprain/partial tear of the deltoid ligament. 3. Probable remote tibionavicular ligament injury with a prominent focus of low-T1/low-T2 signal deep to the distal insertion of the posterior tibialis tendon. No associated edema. 4. Small plantar and dorsal calcaneal spurs. 5. Possible mild strain of the distal soleus muscle. No measurable Achilles tendon tear.
== END 2023-12-14 17:26 | disposition home or self-care (01) ==
LOC: HO.MRI 17:25
PROVIDERS: PCP Nurse Practitioner Family; Visit Provider Physician Assistant
DX: S93.402A Sprain of unspecified ligament of left ankle, initial encounter (principal)
CPT/HCPCS: 73721

== ENCOUNTER 2023-12-21 10:05 | Outpatient (AMB) | payer OTHER, SELFPAY ==
--- NOTE | 2023-12-21 10:09 | A.OFFPC_ITS ---
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 He reports that this has been present for 4 days. Pt states that this is present whether he is sitting still or moving. He states that this is worse with deep breathing and is not reproducible with touch. EKG today shows normal sinus rhythm. Sending pt to [facility] ER for further workup, report called. Denies fever, chills, and shortness of breath. COUNT INCLUDES THE [facility] Medical History No known health problems Surgical History Hx of appendectomy Social History Housing: House Patient Tobacco Use Status: Former Tobacco user e-Cigarette/Vaping Use: Never Used service: No Current occupational status: employed Cognitive needs: No Hearing needs: No Vision needs: No Questionnaire PHQ-9 Over the last 2 weeks, how often have you been bothered by any of the following problems? 1. Little interest or pleasure in doing things: not at all 2. Feeling down, depressed, or hopeless: not at all 3. Trouble falling or staying asleep, or sleeping too much: not at all 4. Feeling tired or having little energy: not at all 5. Poor appetite or overeating: not at all 6. Feeling bad about yourself - or that you are a failure or have let yourself or your family down: not at all 7. Trouble concentrating on things, such as reading the newspaper or watching television: not at all 8. Moving or speaking so slowly that other people could have noticed. Or the opposite - being so fidgety or restless that you have been moving around a lot more than usual: not at all 9. Thoughts that you would be better off or of hurting yourself in some way: not at all Total score: 0 Depression Screening Interpretation: Negative Depression Screening Done: Yes 13705 - PHQ-9 Billing: Yes Source: Developed by Drs. Daniel Campo, Viri Adams, Jersey Pandya and colleagues, with an educational veronika from [employer]. Thrive Questionnaire Date Thrive assessed: 12/21/23 I am a: Patient What is your living situation today?: I have a steady place to live Within the past 12 months, did the food you bought not last and you didn't have the money to get more?: Never true Within the past 12 months, did you worry whether your food would run out before you got money to buy more?: Never true Do you have trouble paying for medicines?: No Do you have trouble getting transportation to medical appointments?: No Do you have trouble paying your heating and electricity bill?: No Do you have trouble taking care of your child, family member or friend?: No Do you have trouble with day-to-day activities such as bathing, preparing meals, shopping, managing finances, etc.?: No Are you currently unemployed and looking for a job?: No Are you interested in more education?: No Please select the resources that you would like help with: None Currently or been in a relationship where the following occur: no concerns reported THRIVE Score: 0 AUDIT C Alcohol Use Questionnaire (AUDIT-C) 1. How often do you have a drink containing alcohol?: Monthly or less 2. How many drinks containing alcohol do you have on a typical day when you are drinking?: 1 or 2 3. How often do you have six or more drinks on one occasion?: Never Total Score: 1 Score Reviewed/Action Taken: No EMMA-7 AMB Questionnaire EMMA-7 Date EMMA - 7 assessed: 12/21/23 Feeling nervous, anxious, or on edge: 0 = Not at all Not being able to stop or control worryin = Not at all Worrying too much about different things: 0 = Not at all Trouble relaxin = Not at all Being so restless that it is hard to sit still: 0 = Not at all Becoming easily annoyed or irritable: 0 = Not at all Feeling afraid as if something awful might happen: 0 = Not at all Total EMAM-7 score (0-4 normal; 5-9 mild; 10-14 moderate; 15-21 severe): 0 Source: Developed by Drs. Daniel Campo, Viri Adams, Jersey Pandya and colleagues, with an educational veronika from [employer]. EMMA-7 Assessment Billing EMMA-7 Assessment Tool: EMMA-7 Assessment 02406 Review of Systems Const Reports as per HPI Physical exam (Primary Care) Vital Signs: Last Vital Signs Pulse 78 12/21/23 10:10 BP 150/90 H 12/21/23 10:10 Pulse Ox 98 12/21/23 10:10 Oxygen Delivery Method Room Air 12/21/23 10:10 BMI result Body Mass Index 38.0 Tobacco/Smoking Status: Tobacco use Status Tobacco use date assessed 12/21/23 12/21/23 10:11 Patient Tobacco Use Status Former Tobacco user 12/21/23 10:11 e-Cigarette/Vaping Use Never Used 12/21/23 10:11 PHQ-9: PHQ-9 Score PHQ-9: Total score 0 12/21/23 10:36 Depression Screening Interpretation: Negative Thrive Assessment: Date of Thrive Assessment Date Thrive assessed 12/21/23 12/21/23 10:11 Currently or been in a relationship where the following occur: no concerns reported Const General: cooperative Nutritional Appearance: obese Orientation/consciousness: patient oriented x3 Neuro General: patient oriented x3 Psych Appearance: grossly normal Mental Status: mental status grossly normal Speech and movement: Normal speech and movement present Affect: Anxious affect present Attitude: cooperative Thought process: Normal thought process present Thought content: Normal thought content present Insight: Good insight present (Psych) Judgement: Good judgement present (Psych) Assessment and Plan Assessment & Plan (1) Chest pain: Code(s): R07.9 - Chest pain, unspecified Plan: pt sent directly to the ER at [facility] Plan The patient agreed to the use of a medical health researcher for this encounter. Scribed for MABEL Cobb by Zhane Porras medical health researcher, on 12/21/2023 at 10:30 EST. Coding Level of Care Code Est Pt Level 3 (19127) Diagnoses Chest pain R07.9 Additional Codes EMMA-7 Assessment Billing - EMMA-7 Assessment Tool: EMMA-7 Assessment 54437 ([id number])
[2023-12-21 10:10] VITALS: BP 150/90; PULSE 78; O2SAT 98; BMI 38.0
== END 2023-12-21 11:57 | disposition home or self-care (01) ==
PROVIDERS: PCP Nurse Practitioner Family; Visit Provider Nurse Practitioner Family
DX: R07.9 Chest pain, unspecified (principal)
CPT/HCPCS: 99213

== ENCOUNTER 2023-12-21 11:41 | Emergency (ER) | payer OTHER, SELFPAY ==
--- NOTE | ~2023-12-21 | XR_ITS ---
EXAMINATION: XR CHEST CLINICAL INFORMATION: Chest pain. COMPARISON: Chest radiograph dated 01/04/2017. TECHNIQUE: 2 views of the chest were obtained. FINDINGS: The trachea is in normal anatomic position. Heart size is normal. Both lungs are clear. There is no consolidation within either lung. The pleural spaces are clear. There is no pneumothorax. There is no acute osseous abnormality. XR/XR chest 2V IMPRESSION: No acute cardiopulmonary disease. Stable appearance of the heart and lungs.
--- NOTE | 2023-12-21 11:43 | ECG_ITS ---
Test Reason : CP Blood Pressure : / mmHG Vent. Rate : 084 BPM Atrial Rate : 084 BPM P-R Int : 154 ms QRS Dur : 086 ms QT Int : 348 ms P-R-T Axes : 061 004 020 degrees QTc Int : 411 ms Normal sinus rhythm with sinus arrhythmia Normal ECG When compared with ECG of 04-JAN-2017 10:59, No significant change was found Referred By: Generic ED Physician Electronically Signed By:Mao Rajput
[2023-12-21 12:00] VITALS: BP 144/82; PULSE 78; RESP 20; TEMP 36.8; O2SAT 99; BMI 39.4
--- NOTE | 2023-12-21 12:00 | ED_ITS ---
HPI - General Adult General Chief complaint: Chest Pain Stated complaint: chest pain Related Data Home Medications Medication Instructions Recorded Confirmed No Known Home Meds 12/21/23 12/21/23 Allergies Allergy/AdvReac Type Severity Reaction Status Date / Time No Known Allergies Allergy Verified 12/21/23 12:33 [facility] Past Medical History Medical History No known health problems Surgical History Hx of appendectomy Social History Social History Housing: House Patient Tobacco Use Status: Former Tobacco user e-Cigarette/Vaping Use: Never Used service: No Current occupational status: employed Cognitive needs: No Hearing needs: No Vision needs: No Physical Exam ED Vital Signs: Vital Signs - 24 hr 12/21/23 12:00 Temperature 98.2 F Pulse Rate 78 Respiratory Rate 20 Blood Pressure 144/82 H Pulse Oximetry 99 Oxygen Delivery Method Room Air BMI result Body Mass Index 39.4 Course Course Course Narrative: This is a rapid medical exam: Additional HPI, ROS, PE not included below will be deferred to primary provider. Patient is a 42-year-old male presenting to the ED with complaint of constant 8/10 left anterior chest pain for the past 3 days. Progressively worsening. Occasional dyspnea. Plan: EKG, labs, CXR Medical Decision Making Lab Data 12/21/23 12:13 12/21/23 12:13 Labs: Lab Results 12/21/23 Range/Units 12:13 WBC 6.9 (4.8-10.8) X10*3/uL RBC 5.00 (4.60-5.80) X10*6/uL Hgb 14.1 (14.0-18.0) g/dl Hct 41.6 L (42.0-52.0) % MCV 83.2 (80.0-98.0) fL MCH 28.2 (27.0-33.0) pg MCHC 33.9 (31.0-36.0) g/dl RDW 13.0 (11.0-16.0) % Plt Count 236 (160-400) X10*3/uL MPV 11.9 (9.4-12.4) fL Immature Gran % (Auto) 0.3 (0.0-0.4) % Neut % (Auto) 66.4 (45-73) % Lymph % (Auto) 22.5 (20-40) % [place] % (Auto) 9.2 (2-11) % Eos % (Auto) 1.2 (0-4) % Baso % (Auto) 0.4 (0-2) % Lymph # (Auto) 1.6 (1.2-4.9) X10*3/uL [place] # (Auto) 0.6 (0.1-1.2) X10*3/uL Eos # (Auto) 0.1 (0.0-0.4) X10*3/uL Baso # (Auto) 0.0 (0.0-0.2) X10*3/uL Abs Immat Gran (auto) 0.02 (0.00-0.03) X10*3/uL Absolute Neuts (auto) 4.6 (2.0-8.3) x10*3/uL Absolute Nucleated RBC 0.000 (0.0-0.012) X10*3/uL Nucleated RBC % (auto) 0.0 (0.0-0.2) /100WBC PT 12.0 (11.1-13.3) SEC INR 1.0 (0.9-1.1) Sodium 141 (135-145) mmol/L Potassium 4.0 (3.3-5.1) mmol/L Chloride 104 (96-108) mmol/L Carbon Dioxide 28 (22-29) mmol/L Anion Gap 13 (12-20) BUN 14 (9-16) mg/dL Creatinine 0.82 (0.5-1.4) mg/dL Estim Creat Clear Calc 149.2 Estimated GFR > 60 Random Glucose 106 (60-115) mg/dL Calcium 9.4 (8.4-10.2) mg/dL Total Bilirubin 0.3 (0.0-1.0) mg/dL AST 33 (5-37) U/L ALT 37 (0-40) U/L Alkaline Phosphatase 64 (39-117) U/L Troponin I High Sens < 2.7 (<3.5-35.0) ng/L Total Protein 7.6 (6.5-8.0) g/dL Albumin 4.4 (3.5-5.0) g/dL Discharge Plan Discharge Clinical Impression: Chest pain Patient Disposition: Left W/O Completing Treatment Prescriptions: No Action No Known Home Meds Discharge Date/Time: 12/21/23 20:32
[2023-12-21 12:19] LABS: MANUAL DIFF FLAG NO
[2023-12-21 12:21] LABS: Basophils Percent Auto 0.4 % (0-2); Eosinophils Absolute Auto 0.1 X10*3/uL (0.0-0.4); Eosinophils Percent Auto 1.2 % (0-4); Hematocrit 41.6 % (42.0-52.0); Hemoglobin 14.1 g/dl (14.0-18.0); Imm Gran Abs Auto 0.02 X10*3/uL (0.00-0.03); Imm Gran Pct Auto 0.3 % (0.0-0.4); Lymphocytes Absolute Auto 1.6 X10*3/uL (1.2-4.9); Lymphocytes Percent Auto 22.5 % (20-40); Mean Corpuscular HGB Conc 33.9 g/dl (31.0-36.0); Mean Corpuscular Hemoglobin 28.2 pg (27.0-33.0); Mean Corpuscular Volume 83.2 fL (80.0-98.0); Mean Platelet Volume 11.9 fL (9.4-12.4); Monocytes Absolute Auto 0.6 X10*3/uL (0.1-1.2); Monocytes Percent Auto 9.2 % (2-11); Neutrophils Absolute Auto 4.6 x10*3/uL (2.0-8.3); Neutrophils Percent Auto 66.4 % (45-73); Platelet Count 236 X10*3/uL (160-400); White Blood Count 6.9 X10*3/uL (4.8-10.8)
[2023-12-21 12:39] LABS: Alanine Aminotransferase 37 U/L (0-40); Albumin Level 4.4 g/dL (3.5-5.0); Alkaline Phosphatase 64 U/L (39-117); Anion Gap 13 (12-20); Aspartate Amino Transferase 33 U/L (5-37); Bilirubin Total 0.3 mg/dL (0.0-1.0); Blood Urea Nitrogen 14 mg/dL (9-16); Calcium 9.4 mg/dL (8.4-10.2); Carbon Dioxide 28 mmol/L (22-29); Chloride 104 mmol/L (96-108); Creatinine Clr Calc Pharmacy 149.2; Estimated Glomerular Filt Rate > 60; Glucose Random 106 mg/dL (60-115); Sodium 141 mmol/L (135-145); Total Protein 7.6 g/dL (6.5-8.0)
[2023-12-21 12:44] LABS: Troponin-I High Sensitivity < 2.7 ng/L (<3.5-35.0)
[2023-12-21 20:20] VITALS: BP 123/81; PULSE 72; RESP 16; TEMP 36.6; O2SAT 98
== END 2023-12-21 20:32 | disposition left against medical advice (07) ==
PROVIDERS: Registered Nurse Emergency; Emergency Provider Emergency Medicine; PCP Nurse Practitioner Family
DX: R07.89 Other chest pain (principal); I49.8 Other specified cardiac arrhythmias; Z79.899 Other long term (current) drug therapy
CPT/HCPCS: 36415; 71046; 80053; 84484; 85025; 85610; 93005; 99283

== ENCOUNTER → 2023-12-21 11:43 | Outpatient (BNV) | payer OTHER, SELFPAY | PROVIDERS: PCP Nurse Practitioner Family; Visit Provider Internal Medicine Cardiovascular Disease | DX: R07.9 Chest pain, unspecified (principal) | CPT/HCPCS: 93010 ==

== ENCOUNTER 2023-12-29 10:00 | Outpatient (RCR) | payer OTHER, SELFPAY ==
--- NOTE | 2023-12-08 12:31 | MHC.PT.EP ---
[facility] [place] [facility] [place] [facility] [place] [facility] [address] [phone] F: [phone] F: [phone] F: [phone] F: [phone] Physical Therapy Plan of Care Date of Evaluation: 12/08/23 Date of Surgery: Diagnosis: L ankle sprain Assessment: Patient is a 42 year old R handed male who presents with s/s consistent with L ankle sprain, ankle pain. 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 Patient past medical history is unremarkable otherwise. Current impairments include pain, ROM, balance, flexibility, strength, activity tolerance and functional mobility. Functional limitations include decreased ability to walk, stand, lift, bend, squat, and push off. Patient is motivated with good rehab potential. Skilled PT will address impairments and functional limitations in order to achieve goals. Frequency and Duration: The patient will be seen 2x/week for 5 weeks Short Term Goals: I with HEP - 2 weeks AROM WNL - 3 weeks Amb symmetrical and pain free - 3 weeks TTP absent - 3 weeks Snf Goals: Restore PLOF - 5 weeks LEFS 56/80 - 5 weeks Strength 4+/5 grossly - 5 weeks Treatment Plan: Modalities to reduce pain, spasms and effusion. Manual therapy to restore motion and function. Therapeutic exercise to improve strength and flexibility. Neuromuscular re-education for posture and balance. Therapeutic activities to return to functional activities of daily living. Electronically signed by: Tre Cristobal PT Please sign and return to therapist. Thank you for your referral.
--- NOTE | 2024-06-27 10:57 | MHC.PT.DC ---
[facility] Office [place] Office [place] Office [address] Alfonso Hilton [address] [phone] F: [phone] F: [phone] F: [phone] F: [phone] Physical Therapy Discharge Report Diagnosis: L ankle sprain Date of Surgery: Date of Evaluation: 12/08/23 Date of Discharge: 01/20/24 Treatments to Date: 3 Cancellations to Date: No Shows to Date: Discharge Status: Recommend MD Follow-up Discharge Summary: 12/29/23: pt still limited from pain and swelling. notes very significant swelling after PT and other activity. after discussion and verification of follow up with MD next week, we will hold until MD appt regarding MRI findings. 12/27/23: pt progressing well with skilled PT. improved activity tolerance. no adverse reactions. continue to progress as tolerated. Patient is a 42 year old R handed male who presents with s/s consistent with L ankle sprain, ankle pain. 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 Patient past medical history is unremarkable otherwise. Current impairments include pain, ROM, balance, flexibility, strength, activity tolerance and functional mobility. Functional limitations include decreased ability to walk, stand, lift, bend, squat, and push off. Patient is motivated with good rehab potential. Skilled PT will address impairments and functional limitations in order to achieve goals. Electronically signed by: Tre Cristobal, PT Please sign and return to therapist. Thank you for your referral.
== END 2024-06-27 10:57 | disposition home or self-care (01) ==
LOC: HO.PTCHIC 10:00
PROVIDERS: PCP Nurse Practitioner Family; Visit Provider Physician Assistant
DX: S93.402A Sprain of unspecified ligament of left ankle, initial encounter (principal)
CPT/HCPCS: 97110; 97112; 97161

== ENCOUNTER 2024-01-05 10:52 | Outpatient (AMB) | payer OTHER, SELFPAY ==
[2024-01-05 10:53] VITALS: BMI 39.3
--- NOTE | 2024-01-05 10:53 | MHC.OFFVIS ---
Intake Vital Signs 01/05/24 10:53 Height 5 ft 9 in Weight 266 lb BMI 39.3 Intake Visit Reasons: OV - left ankle MRI review Intake Note: Caity is a 43 year old male who presents today for a MRI review of his left ankle. MRI was done on 12/14/23. Patient reports he is doing well. He states that he notice some swelling in his left foot after P.T. Allergies No Known Allergies Allergy (Verified 01/05/24 10:53) HPI OV - left ankle MRI review HPI Details 43-year-old male, who is Gambian speaking, presents in the office today for a follow up of left ankle pain and review of his MRI. I last saw the patient in the office on 11/21/2023 at which time he was encouraged to return to physical therapy to work on ROM and strengthening. He was also referred for an MRI. Patient is currently attending physical therapy and has presented for 3 sessions as of 12/29/2023. 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 Of note: Patient presents in the office today with his nurse case resource manager. [facility] Medical History No known health problems Surgical History Hx of appendectomy Social History Housing: House Patient Tobacco Use Status: Former Tobacco user e-Cigarette/Vaping Use: Never Used service: No Current occupational status: employed Cognitive needs: No Hearing needs: No Vision needs: No Review of Systems Const All systems reviewed & are unremarkable except as noted in HPI and below Physical Exam Vital Signs: BMI result Body Mass Index 39.3 Const General: cooperative, healthy appearing and no acute distress Resp Effort & Inspection: normal respiratory effort and able to speak in complete sentences Cardio Rate: regular rate Peripheral pulses: Peripheral pulses 2+ throughout GI Palpation (GI): Soft to palpation Skin Lesions: no lesions Rashes: no rashes Extrem Other: Left ankle: Normal to inspection. No limitations in ROM with inversion, eversion, dorsiflexion or plantarflexion. NVI. Assessment & Plan Assessment & Plan (1) Left ankle sprain: Code(s): S93.402A - Sprain of unspecified ligament of left ankle, initial encounter Qualifiers: Encounter type: initial encounter Involved ligament of ankle: unspecified ligament Qualified Code(s): S93.402A - Sprain of unspecified ligament of left ankle, initial encounter Plan Mr. Ramires is a 43-year-old male, who is Gambian speaking, presents in the office today for a follow up of left ankle pain and review of his MRI. I last saw the patient in the office on 11/21/2023 at which time he was encouraged to return to physical therapy to work on ROM and strengthening. He was also referred for an MRI. Patient is currently attending physical therapy and has presented for 3 sessions as of 12/29/2023. 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 Of note: Patient presents in the office today with his nurse case resource manager. 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 He can continue to work with physical therapy until his sessions are complete. I did educate the patient that edema may linger and be intermittent until a year or greater after the injury. Follow up will be PRN, or sooner if needed. MRI of the left ankle, obtained on 12/14/2023, revealed: 1. No acute osseous injury. 2. Remote sprain/partial tear of the deltoid ligament. 3. Probable remote tibionavicular ligament injury with a prominent focus of low-T1/low-T2 signal deep to the distal insertion of the posterior tibialis tendon. No associated edema. 4. Small plantar and dorsal calcaneal spurs. 5. Possible mild strain of the distal soleus muscle. No measurable Achilles tendon tear. Patient Instructions: Scribed by Inés Rodarte medical affairs director, for Elba Alford PA-C on 01/05/2024 at 10:57 am, EST. Coding Level of Care Code Est Pt Level 3 (97590) Diagnoses Sprain of left ankle, unspecified ligament, initial encounter S93.402A Encounter type: initial encounter Involved ligament of ankle: unspecified ligament
== END 2024-01-05 11:07 | disposition home or self-care (01) ==
PROVIDERS: PCP Nurse Practitioner Family; Visit Provider Physician Assistant
DX: S93.402A Sprain of unspecified ligament of left ankle, initial encounter (principal)
CPT/HCPCS: 99213

== ENCOUNTER → 2024-01-05 10:52 | Outpatient (BNVA) | payer OTHER, SELFPAY | PROVIDERS: PCP Nurse Practitioner Family; Visit Provider Physician Assistant | DX: S93.402A Sprain of unspecified ligament of left ankle, initial encounter (principal) | CPT/HCPCS: 99212 ==

== ENCOUNTER 2024-01-10 09:51 | Emergency (ER) | payer OTHER, SELFPAY ==
--- NOTE | 2024-01-10 | ECG_ITS ---
Test Reason : cp Blood Pressure : / mmHG Vent. Rate : 079 BPM Atrial Rate : 079 BPM P-R Int : 158 ms QRS Dur : 084 ms QT Int : 356 ms P-R-T Axes : 040 011 027 degrees QTc Int : 408 ms Normal sinus rhythm Normal ECG When compared with ECG of 21-DEC-2023 11:49, No significant change was found Referred By: Generic ED Physician Electronically Signed By:Mao Rajput
--- NOTE | ~2024-01-10 | XR_ITS ---
EXAMINATION: XR CHEST CLINICAL INFORMATION: Chest pain COMPARISON: Chest radiograph from 02/20/2024 TECHNIQUE: 2 views of the chest were obtained. FINDINGS: No focal consolidation. No pneumothorax. Trachea is midline. Cardiac mediastinal silhouette is not enlarged. No large pleural effusion. Osseous structures are intact. Soft tissues are unremarkable. XR/XR chest 2V IMPRESSION: No acute cardiopulmonary process.
[2024-01-10 10:38] VITALS: BP 164/99; PULSE 77; RESP 18; TEMP 37; O2SAT 99; BMI 36.9
[2024-01-10 11:12] LABS: MANUAL DIFF FLAG NO
[2024-01-10 11:14] LABS: Basophils Percent Auto 0.7 % (0-2); Eosinophils Absolute Auto 0.2 X10*3/uL (0.0-0.4); Eosinophils Percent Auto 2.9 % (0-4); Hemoglobin 14.7 g/dl (14.0-18.0); Imm Gran Abs Auto 0.03 X10*3/uL (0.00-0.03); Imm Gran Pct Auto 0.5 % (0.0-0.4); Lymphocytes Absolute Auto 1.6 X10*3/uL (1.2-4.9); Lymphocytes Percent Auto 26.7 % (20-40); Mean Corpuscular HGB Conc 34.2 g/dl (31.0-36.0); Mean Corpuscular Hemoglobin 28.4 pg (27.0-33.0); Mean Platelet Volume 11.6 fL (9.4-12.4); Monocytes Absolute Auto 0.5 X10*3/uL (0.1-1.2); Monocytes Percent Auto 8.7 % (2-11); Neutrophils Absolute Auto 3.6 x10*3/uL (2.0-8.3); Neutrophils Percent Auto 60.5 % (45-73); Platelet Count 239 X10*3/uL (160-400); Red Blood Count 5.18 X10*6/uL (4.60-5.80); Red Cell Distribution Width 12.6 % (11.0-16.0)
[2024-01-10 11:25] LABS: Anion Gap 9 (12-20); Blood Urea Nitrogen 16 mg/dL (9-16); Calcium 9.2 mg/dL (8.4-10.2); Carbon Dioxide 26 mmol/L (22-29); Chloride 107 mmol/L (96-108); Creatinine Clr Calc Pharmacy 127.2; Estimated Glomerular Filt Rate > 60; Glucose Random 114 mg/dL (60-115); Potassium 4.2 mmol/L (3.3-5.1); Sodium 138 mmol/L (135-145)
[2024-01-10 11:34] LABS: Troponin-I High Sensitivity < 2.7 ng/L (<3.5-35.0)
[2024-01-10 11:37] VITALS: BP 143/82; PULSE 77; RESP 14; TEMP 36.6; O2SAT 98
--- NOTE | 2024-01-10 12:06 | ED.CHESTPAIN ---
HPI - Chest Pain General Chief Complaint: Chest Pain Stated Complaint: Chest Pain X 2 Days Time Seen by Provider: 01/10/24 12:05 Source: patient, RN notes reviewed and old records reviewed Mode of arrival: ambulatory Limitations: no limitations History of Present Illness HPI narrative: 43 year old male with no significant pmhx presents to the ED today for evaluation of chest pain x3 weeks. Admits to left anterior chest pain that will come and go however never completely resolves. Pain is described as a pressure sensation and occasionally becomes sharp. Pain is not exacerbated with exertion. Pain is not reproducible with touch. He has not been taking any OTC pain medications for this at home. He endorses concern for elevated blood pressure. He states that he had a routine visit with his PCP a few weeks ago and was noted to have elevated blood pressure. He was not placed on medication at that time however they discussed lifestyle/dietary changes. He states that he has been making changes to his diet however believes his blood pressure became elevated again today. He has never received a diagnosis of hypertension and has never been on medication for this. He presented to [facility] ED 20 days ago for same however left without completing treatment. Denies fever, chills, headache, dizziness, vision changes, cough, sputum production, hemoptysis, shortness of breath, dyspnea, palpitations, LE pain/swelling. Denies recent travel or long car rides. Denies history of VTE. Denies cardiac history. Related Data Home Medications Medication Instructions Recorded Confirmed No Known Home Meds 12/21/23 12/21/23 Allergies Allergy/AdvReac Type Severity Reaction Status Date / Time No Known Allergies Allergy Verified 01/05/24 10:53 Review of Systems Review of Systems: Constitutional: No fever, chills, fatigue, night sweats, weight changes ENT/Mouth: No ear pain, hearing loss, nasal congestion, sinus pain, rhinorrhea, sore throat Eyes: No eye pain, swelling, redness, vision changes, discharge Cardio: No palpitations, BROWN, orthopnea, peripheral edema, +chest pain Pulm: No SOB, cough, sputum, wheezing, dyspnea, hemoptysis GI: No nausea, vomiting, hematemesis, abdominal pain, diarrhea, constipation, hematochezia, melena : No irregular bleeding, dysuria, frequency, urgency, hesitancy, hematuria, flank pain, urinary flow changes, urinary incontinence or retention MSK: No back pain, neck pain, joint pain, myalgias Skin: No lesions, rashes Neuro: No weakness, numbness, paresthesias, LOC, dizziness, headache Psych: No anxiety/panic, depression, SI/HI, AH/VH All other systems reviewed and are negative. [facility] Past Medical History Attestation statement: The following information was validated with the patient. Source: old records reviewed and nursing notes reviewed Medical History No known health problems Surgical History Hx of appendectomy Social History Social History Housing: House Patient Tobacco Use Status: Former Tobacco user Smoked in Last 30 Days: No e-Cigarette/Vaping Use: Never Used Use of substances other than those prescribed or required for medical reasons: No Advance Directives: No Advance Directives Information Provided: No service: No Current occupational status: employed Cognitive needs: No Hearing needs: No Vision needs: No Physical Exam Vital Signs: Vital Signs: Last Vital Signs Temp 98.0 F 01/10/24 17:04 Pulse 71 01/10/24 17:04 Resp 10 L 01/10/24 17:04 BP 127/82 01/10/24 17:04 Pulse Ox 99 01/10/24 17:04 O2 Del Method Room Air 01/10/24 17:04 BMI result Body Mass Index 36.9 Hypertensive, vitals otherwise WNL Const: Other: + lying comfortably in bed playing on phone, nontoxic appearing, not diaphoretic General: cooperative, healthy appearing, comfortable and no acute distress Orientation/consciousness: patient oriented x3 Limitations: no limitations HEENT: Head: Yes normal to inspection, Yes No palpable skull fracture present, Yes normocephalic and Yes atraumatic Eyes: General: appearance normal, both eyes and all related structures Conjunctivae: conjunctivae normal Sclerae: sclerae normal Pupils: Equal, round and reactive pupils present Neck: Neck: Yes normal visual inspection, Yes full ROM, Yes no lymphadenopathy and Yes no JVD Chest: Chest palpation & inspection: normal inspection of the chest and normal palpation of entire chest wall Resp: Effort & Inspection: normal respiratory effort and able to speak in complete sentences Auscultation: clear to auscultation bilaterally, no crackles, no rhonchi and no wheezes Cardio: Other: + 2+ radial pulses bilaterally Jugular venous distension: no JVD Rate: regular rate Rhythm: regular rhythm GI: Inspection: Yes normal to inspection Palpation (GI): Soft to palpation and nontender Skin: General skin exam: no rashes or lesions noted Neuro: General: patient oriented x3 Cranial nerves: Yes Equal, round and reactive pupils present Extrem: General: Yes normal to inspection, Yes no pedal edema and Yes no calf tenderness Course Course Course Narrative: 1207-- On chart review, patient presented to [facility] ED on 12/21/23 for same however left the ED without completing treatment following lab draw and CXR. I have reviewed labs obtained on 12/21/23 which do not demonstrate leukocytosis or left shift. There is no anemia. No acute electrolyte abnormalities requiring intervention. Initial troponin undetectable however there was no repeat obtain as patient left without completing treatment. Chest x-ray obtained at that time did not demonstrate acute cardiopulmonary disease. > Labs obtained at today's visit: CBC without leukocytosis or left shift. No anemia. H&H stable. Chemistry without acute electrolyte abnormality requiring intervention. Initial troponin undetectable. Will repeat for delta. Awaiting cxr results and d dimer. 1630-- D-dimer undetectable > PE unlikely. CTA chest will not be obtained. Chest x-ray does not demonstrate pneumonia or effusion. Cardiac silhouette is normal. Delta troponin flat > ACS unlikely. There is no clear etiology for patient's chest pain. He was initially hypertensive to 164/99 however this normalized throughout visit. I do not have concern for hypertensive urgency or emergency. I informed patient of all workup results. I advised him to follow-up with his PCP about further management of his blood pressure. I will also provide him with a referral to group leader wafer polishing to establish care. He verbalizes understanding. Patient has remained stable throughout ED visit today. Discussed worrisome signs and symptoms and when to return to the ED. All questions answered at this time. Patient is agreeable with disposition and stable for discharge. Medications Administered Discontinued Medications Generic Name Dose Route Start Last Admin Trade Name Freq PRN Reason Stop Dose Admin Ketorolac Tromethamine 30 mg 01/10/24 12:33 01/10/24 12:39 Ketorolac Tromethamine 30 Mg/Ml Vial IM 01/10/24 12:34 30 mg ONCE ONE Administration Medical Decision Making Medical Decision Making [facility] Narrative: 43 year old male with no significant pmhx presents to the ED today for evaluation of chest pain x3 weeks. Initial blood pressure on arrival 164/99, now 143/82. Vitals have otherwise remained within normal limits. He is nontoxic-appearing and in no acute distress. Not diaphoretic. No reproducible tenderness noted to the anterior, lateral or posterior chest zarate. No palpable deformity or crepitus. RRR. Lungs are CTA bilaterally. No JVD or peripheral edema. No calf tenderness bilaterally. Differential diagnosis includes costochondritis, pleuritis, arrhythmia, ACS, pneumonia, PE Plan for labs, trop, EKG, chest x-ray, d-dimer, pain control and re-evaluation. Differential Diagnosis Differential Diagnoses: The differential diagnosis associated with the presentation includes as above Admission/Observation not indicated. Lab Data [facility] Lab Attestation statement: I reviewed the patient's lab results. as above. 01/10/24 11:08 01/10/24 11:08 Labs: Lab Results 01/10/24 01/10/24 01/10/24 Range/Units 11:08 13:35 15:37 WBC 6.0 (4.8-10.8) X10*3/uL RBC 5.18 (4.60-5.80) X10*6/uL Hgb 14.7 (14.0-18.0) g/dl Hct 43.0 (42.0-52.0) % MCV 83.0 (80.0-98.0) fL MCH 28.4 (27.0-33.0) pg MCHC 34.2 (31.0-36.0) g/dl RDW 12.6 (11.0-16.0) % Plt Count 239 (160-400) X10*3/uL MPV 11.6 (9.4-12.4) fL Immature Gran % (Auto) 0.5 H (0.0-0.4) % Neut % (Auto) 60.5 (45-73) % Lymph % (Auto) 26.7 (20-40) % Lincoln % (Auto) 8.7 (2-11) % Eos % (Auto) 2.9 (0-4) % Baso % (Auto) 0.7 (0-2) % Lymph # (Auto) 1.6 (1.2-4.9) X10*3/uL Lincoln # (Auto) 0.5 (0.1-1.2) X10*3/uL Eos # (Auto) 0.2 (0.0-0.4) X10*3/uL Baso # (Auto) 0.0 (0.0-0.2) X10*3/uL Abs Immat Gran (auto) 0.03 (0.00-0.03) X10*3/uL Absolute Neuts (auto) 3.6 (2.0-8.3) x10*3/uL Absolute Nucleated RBC 0.000 (0.0-0.012) X10*3/uL Nucleated RBC % (auto) 0.0 (0.0-0.2) /100WBC D-Dimer High Sensitivty < 150 NG/ML Sodium 138 (135-145) mmol/L Potassium 4.2 (3.3-5.1) mmol/L Chloride 107 (96-108) mmol/L Carbon Dioxide 26 (22-29) mmol/L Anion Gap 9 L (12-20) BUN 16 (9-16) mg/dL Creatinine 0.92 (0.5-1.4) mg/dL Estim Creat Clear Calc 127.2 Estimated GFR > 60 Random Glucose 114 (60-115) mg/dL Calcium 9.2 (8.4-10.2) mg/dL Troponin I High Sens < 2.7 < 2.7 (<3.5-35.0) ng/L Independent Interpretation I performed an independent interpretation of an: EKG and Plain X-Ray Interpretation: EKG showing normal sinus rhythm at a rate of 93 beats per minute, QT 370, QTC 460, no acute ischemic changes or ST elevations. I have reviewed chest x-ray and agree with radiologist's interpretation. Radiology Impression Discussion of test interpretation with radiology: I have reviewed the radiologist's reading. Radiologist Impression: EXAMINATION: XR CHEST CLINICAL INFORMATION: Chest pain COMPARISON: Chest radiograph from 02/20/2024 TECHNIQUE: 2 views of the chest were obtained. FINDINGS: No focal consolidation. No pneumothorax. Trachea is midline. Cardiac mediastinal silhouette is not enlarged. No large pleural effusion. Osseous structures are intact. Soft tissues are unremarkable. XR/XR chest 2V IMPRESSION: No acute cardiopulmonary process. External Record Review External record reviewed: Inpatient record, Office record, Outpatient record, Prior outpatient labs, Prior outpatient radiology, Primary care record and Outside ED record Prescription Management I considered prescription management with: Pain Medication Social Determinants Patient?s care significantly limited by Social Determinants of Health including: Other Social Determinant of Health Critical Care Time Critical Care Time Critical Care Time: Yes Total Critical Care Time: 45 Attestation: Critical care time in the amount of 45 minutes has been provided to the patient in terms of direct patient care, frequent reevaluation, review and interpretation of medical data and results, and management of potentially life-threatening conditions. This is all outside of any medical procedures. Discharge Plan Discharge Clinical Impression: Atypical chest pain Patient Disposition: Home, Self-Care Instructions: Chest Pain (ED), Chest Wall Pain (ED) Additional Instructions: Your lab work today is reassuring. Your EKG is normal. Your chest x-ray is normal. Your blood pressure was normal today. There is no clear etiology for your chest pain. It may possibly be musculoskeletal. You may take anti-inflammatories at home for pain/discomfort. These include ibuprofen, naproxen, etc. Please follow-up with your primary care provider regarding ongoing elevated blood pressure issues. You have also been provided with a referral to a group leader wafer polishing. You may call them to establish care. They will not call you. If symptoms persist or worsen please return to the ED. In the case of an emergency call 911. Prescriptions: No Action No Known Home Meds Referrals: [facility] Cardiovascular Services [Provider Group] Stand Alone Forms: Work/School Release Interventions: ED Discharge Assessment Last Done: 01/10/24 17:04 Discharge Date/Time: 01/10/24 17:06 Print Language: Gabonese
[2024-01-10 12:39] VITALS: BP 112/74; PULSE 73; RESP 15
[2024-01-10] MEDS: Ketorolac Tromethamine 30 MG/ML VIAL IM (12:39)
[2024-01-10 14:29] LABS: D Dimer High Sensitivity < 150 NG/ML
[2024-01-10 16:15] LABS: Troponin-I High Sensitivity < 2.7 ng/L (<3.5-35.0)
[2024-01-10 17:04] VITALS: BP 127/82; PULSE 71; RESP 10; TEMP 36.7; O2SAT 99
== END 2024-01-10 17:06 | disposition home or self-care (01) ==
PROVIDERS: Physician Assistant Medical; Emergency Provider Emergency Medicine Emergency Medical Services; PCP Nurse Practitioner Family
DX: R07.89 Other chest pain (principal); R07.9 Chest pain, unspecified; R03.0 Elevated blood-pressure reading, without diagnosis of hypertension
CPT/HCPCS: 36415; 71046; 80048; 84484; 85025; 85379; 93005; 96372; 99284; 99285; J1885

== ENCOUNTER → 2024-01-10 09:57 | Outpatient (BNV) | payer OTHER, SELFPAY | PROVIDERS: Emergency Provider Emergency Medicine Emergency Medical Services; PCP Nurse Practitioner Family; Visit Provider Internal Medicine Cardiovascular Disease | DX: R07.9 Chest pain, unspecified (principal) | CPT/HCPCS: 93010 ==

== ENCOUNTER 2024-07-15 03:42 | Emergency (ER) | payer OTHER, SELFPAY ==
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
[2024-07-15 03:49] VITALS: BP 158/68; PULSE 84; RESP 18; TEMP 36.4; O2SAT 96; BMI 35.5
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
[2024-07-15 06:19] VITALS: BP 142/86; PULSE 75; RESP 16; TEMP 36.7; O2SAT 96
== END 2024-07-15 06:20 | disposition home or self-care (01) ==
PROVIDERS: Emergency Provider Emergency Medicine
DX: S13.4XXA Sprain of ligaments of cervical spine, initial encounter (principal); S70.02XA Contusion of left hip, initial encounter; S96.912A Strain of unspecified muscle and tendon at ankle and foot level, left foot, initial encounter; V43.52XA Car driver injured in collision with other type car in traffic accident, initial encounter; E78.5 Hyperlipidemia, unspecified; Y93.89 Activity, other specified; Y92.414 Local residential or business street as the place of occurrence of the external cause; Y99.9 Unspecified external cause status
CPT/HCPCS: 72040; 73502; 73610; 99283; 99284

== ENCOUNTER 2025-01-20 07:58 | Outpatient (REF) | payer OTHER, SELFPAY ==
--- OUTSIDE RECORDS SUMMARY | 2025-01-20 08:02 | XMS_ITS | Data Portability ---
Author Organization [facility] [id number] Address [address] [place] [address] Assessment No assessment recorded. Plan of Treatment Reminders Order Date Submit Date Provider Last Modified By Organization Details Last Modified Time Details Appointments None record ed. Lab None record ed. Referral None record ed. Procedures None record ed. Surgeries None record ed. Imaging None record ed. Medication Orders None record ed. Patient TargetsNo targets recorded. Patient InstructionsNo instructions recorded. Reason for Referral None Reported. Procedures Surgical History Date Name Laterality Status Provider Name and Address Organization Details Recorded Time -UDS Send Out Template DOT completed KRISTI Sale[facility] 05/18/2023 13:16:37 Imaging Results None recorded. Procedure Notes None recorded. Medical Equipment None Reported. Medications Name Sig Start Date Stop Date Status Note LastModified by Organization Details LastModified Time ibuprofen 800 mg tablet TAKE 1 TABLET BY MOUTH 3 TIMES A DAY FOR 3 WEEKS FOR LEFT KNEE PAIN THEN NEEDED AFTER active Not Available Not Available No t Available Vitals None Recorded Social History None recorded. Functional Status None recorded. Mental Status None recorded. Family History Nothing Reported. Medical History No medical history recorded. Past Encounters Encounter ID Performer Location Encounter Start Date Encounter Closed Date Diagnosis/Indication Diagnosis SNOMED-CT Code Diagnosis ICD10 Code Diagnosis Note [id number] [facility] [address] [place] [id number] 03/23/2020 17:00:12 03/23/2020 17:49:57 [id number] [facility] [address] [place] [phone] 05/22/2020 11:25:42 05/22/2020 12:43:06 [id number] [facility], [place] [address] 04/02/2020 12:22:09 04/02/2020 13:16:30 [id number] [address] [facility] [place] [address] 05/22/2020 15:00:47 05/22/2020 16:59:51 [id number] [address] [facility] [address] [place] [address] 03/11/2022 13:21:22 03/11/2022 14:18:19 [id number] [facility] [address] [facility] [address] [place] [address] 05/18/2023 12:17:25 05/18/2023 13:19:36 History and physical examination, occupation [id number] Z02.1 Health Concerns Section Related Observation LastModified by Organization Detai ls LastModified Time None Recorded Concern Status LastModified by Organization Details LastModified Time None Recorded Advance Directives Directive None Recorded Payers Encounter Date Sequence Insurance Name Policy Number Policy Brady Covered Member ID Brady Member ID Guarantor Name 05/18/2023 [employer] PREMIER EDY Caity Ramires
[2025-01-20 10:15] LABS: Appearance Urine Clear; Color Urine Yellow; Glucose Urine UA Negative (Negative); Leukocyte Esterase Urine Negative (Negative); Nitrite Urine Negative (Negative); PH 5.5 (5.0-9.0); Specific Gravity - Urine >= 1.030 (1.005-1.025); Urine Blood Negative (Negative); Urine Ketones Negative (Negative); Urine Protein Negative (Neg-Trace)
[2025-01-20 10:28] LABS: MANUAL DIFF FLAG NO
[2025-01-20 10:46] LABS: Basophils Absolute Auto 0.1 X10*3/uL (0.0-0.2); Basophils Percent Auto 0.8 % (0-2); Eosinophils Absolute Auto 0.2 X10*3/uL (0.0-0.4); Eosinophils Percent Auto 3.9 % (0-4); Hematocrit 44.6 % (42.0-52.0); Hemoglobin 14.4 g/dl (14.0-18.0); Imm Gran Abs Auto 0.03 X10*3/uL (0.00-0.03); Imm Gran Pct Auto 0.5 % (0.0-0.4); Lymphocytes Absolute Auto 2.1 X10*3/uL (1.2-4.9); Mean Corpuscular HGB Conc 32.3 g/dl (31.0-36.0); Mean Corpuscular Hemoglobin 28.2 pg (27.0-33.0); Mean Corpuscular Volume 87.5 fL (80.0-98.0); Mean Platelet Volume 12.8 fL (9.4-12.4); Monocytes Absolute Auto 0.6 X10*3/uL (0.1-1.2); Neutrophils Absolute Auto 3.3 x10*3/uL (2.0-8.3); Neutrophils Percent Auto 52.8 % (45-73); Platelet Count 208 X10*3/uL (160-400); Red Cell Distribution Width 12.9 % (11.0-16.0); White Blood Count 6.2 X10*3/uL (4.8-10.8)
[2025-01-20 11:23] LABS: Prostate Specific Antigen Scr 1.26 ng/mL (<0.05-4.0)
[2025-01-20 12:54] LABS: Alanine Aminotransferase 48 U/L (0-40); Albumin Level 4.4 g/dL (3.5-5.0); Anion Gap 13 (12-20); Aspartate Amino Transferase 40 U/L (5-37); Bilirubin Total 0.3 mg/dL (0.0-1.0); Blood Urea Nitrogen 18 mg/dL (9-16); Calcium 9.2 mg/dL (8.4-10.2); Carbon Dioxide 27 mmol/L (22-29); Chloride 105 mmol/L (96-108); Cholesterol 207 mg/dL (<200); Estimated Glomerular Filt Rate > 60; Glucose Fasting 103 mg/dL (60-99); HDL Cholesterol 47 mg/dL (>40); LDL Cholesterol Calculated 117 mg/dL (<100); Potassium 4.2 mmol/L (3.3-5.1); Sodium 141 mmol/L (135-145); TSH reflex Free T4 1.53 uIU/mL (0.32-4.0); Total Protein 7.4 g/dL (6.5-8.0); Triglycerides 218 mg/dL (<150)
[2025-01-20 13:43] LABS: Alkaline Phosphatase 64 U/L (39-117)
== END 2025-01-20 07:59 | disposition home or self-care (01) ==
LOC: HO.HMGCLDS 07:58
PROVIDERS: PCP Nurse Practitioner Family; Visit Provider Nurse Practitioner Family
DX: E78.5 Hyperlipidemia, unspecified (principal); Z12.5 Encounter for screening for malignant neoplasm of prostate
CPT/HCPCS: 36415; 80053; 80061; 81003; 84153; 84443; 85025

== ENCOUNTER 2025-01-21 12:50 | Outpatient (AMB) | payer OTHER, SELFPAY ==
[2025-01-21 13:17] VITALS: BP 138/82; PULSE 82; O2SAT 98; BMI 37.2
--- NOTE | 2025-01-21 13:17 | A.OFFPC_ITS ---
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 History of Present Illness The patient is a 44-year-old male presenting for the evaluation of intermittent chest pain. The episodes of discomfort are described as non-radiating and are not specifically triggered by activity, occurring both when moving and at rest. The patient identifies stress and anxiety as potential contributing factors, he has a therapist. The medical history also includes elevated liver enzymes, which requires further assessment to rule out any underlying hepatic conditions. Concurrently, there is a noted history of hyperlipidemia, specifically elevated LDL cholesterol levels, which need dietary intervention and follow-up testing. NOTE: father diagnosed with prostate cancer in his 50s. Pt refused GRACIELA today, PSA is done. Social History - Lives alone, potentially influencing m ental health and support systems. - Reports feelings of anxiety and stress , with an established relationship with a therapist. Health Maintenance - Discussed dietary intervention for cho lesterol management. - Plan to repeat cholesterol levels in t wo months for reevaluation. Review of Systems - Cardiovascular: Reports intermittent c hest pain. - Psychiatric: Reports anxiety, denies s uicidal or homicidal ideation. Physical Exam General: Cooperative, healthy appearing, comfortable, no acute distress and well developed, obese Orientation: Patient oriented x3 Limitations: No limitations Head: Normal to inspection Ears: Hearing grossly normal bilaterally Nose: Normal external nose present Face and sinus: Normal facial exam Eyes: Appearance normal, both eyes and all related structures Neck: Normal visual inspection and Yes full ROM Respiratory: Normal respiratory effort and able to speak in complete sentences. Clear to auscultation bilaterally Cardiovascular: Regular rate and rhythm. Normal S1 and S2 GI: Normal to inspection. Soft to palpation and nontender Skin: No rashes or lesions noted Neuro: Patient oriented x3 Extremities: Normal to inspection Results - Tests: EKG today was benign. Plan For the presented intermittent chest pain, I have scheduled a stress test and echocardiogram to further explore cardiac function. Considering previously noted elevated liver enzyme levels, I have ordered an abdominal ultrasound and hepatitis screening for a detailed hepatic assessment. To manage hyperlipidemia, I recommended dietary changes and plan to re-check cholesterol levels in two months. With a normal EKG, the symptoms are likely linked to stress and anxiety, and I support the continuation of therapy sessions. Discussion Notes During the consultation, I discussed the potential link between stress/anxiety and the patient?s chest pain. I emphasized the importance of the forthcoming stress test and echocardiogram for evaluating cardiac health. The risks and benefits of the procedures, as well as the patient?s need for ongoing therapy, were detailed. Regarding elevated liver enzymes, I outlined the next steps, including an ultrasound and hepatitis screening. Lifestyle alteration for cholesterol management was advised. The patient was informed about return precautions and advised to report any worsening symptoms or new issues. Patient Instructions - Continue with therapy for managing str ess and anxiety. - Incorporate dietary changes to improve cholesterol levels. - Undergo a stress test and echocardiogr am as scheduled. - Obtain an abdominal ultrasound and hep atitis screen for liver assessment. - Plan to repeat cholesterol testing in two months. - Return to care if chest pain worsens o r other concerning symptoms develop. PFSH Medical History Dyslipidemia Surgical History Hx of appendectomy Social History Housing: House Patient Tobacco Use Status: Former Tobacco user e-Cigarette/Vaping Use: Never Used service: No Current occupational status: employed Cognitive needs: No Hearing needs: No Vision needs: No Questionnaire PHQ-9 Over the last 2 weeks, how often have you been bothered by any of the following problems? 1. Little interest or pleasure in doing things: not at all 2. Feeling down, depressed, or hopeless: not at all 3. Trouble falling or staying asleep, or sleeping too much: not at all 4. Feeling tired or having little energy: not at all 5. Poor appetite or overeating: not at all 6. Feeling bad about yourself - or that you are a failure or have let yourself or your family down: not at all 7. Trouble concentrating on things, such as reading the newspaper or watching television: not at all 8. Moving or speaking so slowly that other people could have noticed. Or the opposite - being so fidgety or restless that you have been moving around a lot more than usual: not at all 9. Thoughts that you would be better off or of hurting yourself in some way: not at all Total score: 0 Depression Screening Interpretation: Negative Depression Screening Done: Yes 30972 - PHQ-9 Billing: Yes Source: Developed by Drs. Daniel Campo, Viri Adams, Jersey Pandya and colleagues, with an educational veronika from [employer]. Thrive Questionnaire Date Thrive assessed: 01/21/25 I am a: Patient What is your living situation today?: I have a steady place to live Within the past 12 months, did the food you bought not last and you didn't have the money to get more?: Never true Within the past 12 months, did you worry whether your food would run out before you got money to buy more?: Never true Do you have trouble paying for medicines?: No Do you have trouble getting transportation to medical appointments?: No Do you have trouble paying your heating and electricity bill?: No Do you have trouble taking care of your child, family member or friend?: No Do you have trouble with day-to-day activities such as bathing, preparing meals, shopping, managing finances, etc.?: No Are you currently unemployed and looking for a job?: No Are you interested in more education?: No Please select the resources that you would like help with: None THRIVE Score: 0 AUDIT C Alcohol Use Questionnaire (AUDIT-C) 1. How often do you have a drink containing alcohol?: Monthly or less 2. How many drinks containing alcohol do you have on a typical day when you are drinking?: 1 or 2 3. How often do you have six or more drinks on one occasion?: Never Total Score: 1 Score Reviewed/Action Taken: Yes EMMA-7 AMB Questionnaire EMMA-7 Date EMMA - 7 assessed: 01/21/25 Feeling nervous, anxious, or on edge: 0 = Not at all Not being able to stop or control worryin = Not at all Worrying too much about different things: 0 = Not at all Trouble relaxin = Not at all Being so restless that it is hard to sit still: 0 = Not at all Becoming easily annoyed or irritable: 0 = Not at all Feeling afraid as if something awful might happen: 0 = Not at all Total EMMA-7 score (0-4 normal; 5-9 mild; 10-14 moderate; 15-21 severe): 0 Source: Developed by Drs. Daniel Campo, Viri Adams, Jersey Pandya and colleagues, with an educational veronika from [employer]. EMMA-7 Assessment Billing EMMA-7 Assessment Tool: EMMA-7 Assessment 51700 Physical exam (Primary Care) Vital Signs: Last Vital Signs Pulse 82 01/21/25 13:17 BP 138/82 01/21/25 13:17 Pulse Ox 98 01/21/25 13:17 Oxygen Delivery Method Room Air 01/21/25 13:17 BMI result Body Mass Index 37.2 Tobacco/Smoking Status: Tobacco use Status Tobacco use date assessed 01/21/25 01/21/25 13:19 Patient Tobacco Use Status Former Tobacco user 01/21/25 13:19 e-Cigarette/Vaping Use Never Used 01/21/25 13:19 PHQ-9: PHQ-9 Score PHQ-9: Total score 0 01/21/25 14:12 Depression Screening Interpretation: Negative Thrive Assessment: Date of Thrive Assessment Date Thrive assessed 01/21/25 01/21/25 13:19 Coding Level of Care Code Est Pt Level 4 (14643) Diagnoses Chest discomfort R07.89 Dyslipidemia E78.5 Stress F43.9 Elevated liver enzymes R74.8 Additional Codes EMMA-7 Assessment Billing - EMMA-7 Assessment Tool: EMMA-7 Assessment 50068 ([id number]) PHQ-9 - 54097 - PHQ-9 Billing: Yes ([id number]) Assessment & Plan Assessment & Plan (1) Chest discomfort: Code(s): R07.89 - Other chest pain Category: Medical (2) Dyslipidemia: Code(s): E78.5 - Hyperlipidemia, unspecified Category: Medical (3) Stress: Code(s): F43.9 - Reaction to severe stress, unspecified Category: Medical (4) Elevated liver enzymes: Code(s): R74.8 - Abnormal levels of other serum enzymes Category: Medical Plan . Orders: Orders AMB EKG-In Office Today R07.89 - Other chest pain NM cardiolite stress test Today R07.89 - Other chest pain CA stress test Today R07.89 - Other chest pain CA echo transthoracic complete Today R07.89 - Other chest pain Lipid Panel 2 Months E78.5 - Hyperlipidemia, unspecified, R07.89 - Other chest pain
--- OUTSIDE RECORDS SUMMARY | 2025-01-21 15:26 | XMS_ITS | Data Portability ---
Author Organization RICHAR Saleh [facility] [address] Address [address] [place] [address] Assessment No assessment recorded. Plan of Treatment [...] SNOMED-CT Code Diagnosis ICD10 Code Diagnosis Note [id number] _Chi Yenyak jacer [address] [place] [address] 03/23/2020 17:00:12 03/23/2020 17:49:57 [id number] _[facility] [address] jacelDr [address] [place] [address] 05/22/2020 11:25:42 05/22/2020 12:43:06 [id number] [address] [facility], [place] [address] 04/02/2020 12:22:09 04/02/2020 13:16:30 [id number] [address] Martha Xavier [address] [facility] [place] [address] 05/22/2020 15:00:47 05/22/2020 16:59:51 [id number] [address] [facility] [place] [address] 03/11/2022 13:21:22 03/11/2022 14:18:19 [id number] RICHAR ALVA [address] [facility] [place] [address] 05/18/2023 12:17:25 05/18/2023 13:19:36 History and physical examination, occupation [id number] Z02.1 Health Concerns Section Related Observation LastModified by Organization Detai ls LastModified Time None Recorded Concern Status LastModified by Organization Details LastModified Time None Recorded Advance Directives Directive None Recorded Payers Encounter Date Sequence Insurance Name Policy Number Policy Brady Covered Member ID Brady Member ID Guarantor Name 05/18/2023 OC-ESCREEN Escreen PREMIER EDY Caity Ramires
== END 2025-01-21 14:51 | disposition home or self-care (01) ==
LOC: HO.HMCC 12:50
PROVIDERS: PCP Nurse Practitioner Family; Visit Provider Nurse Practitioner Family
DX: R07.89 Other chest pain (principal); E78.5 Hyperlipidemia, unspecified; F43.9 Reaction to severe stress, unspecified; R74.8 Abnormal levels of other serum enzymes

== ENCOUNTER → 2025-01-21 12:50 | Outpatient (BNVA) | payer OTHER, SELFPAY | PROVIDERS: PCP Nurse Practitioner Family; Visit Provider Nurse Practitioner Family | DX: R07.89 Other chest pain (principal); E78.5 Hyperlipidemia, unspecified; R74.8 Abnormal levels of other serum enzymes; F43.9 Reaction to severe stress, unspecified | CPT/HCPCS: 96127; 99212 ==

== ENCOUNTER → 2025-03-05 09:04 | Outpatient (REF) | payer OTHER, SELFPAY ==
--- NOTE | ~2025-03-05 | NM_ITS ---
EXERCISE MYOCARDIAL PERFUSION STUDY INDICATION: Chest pain to evaluate for myocardial ischemia TECHNIQUE: The patient was brought in for an exercise perfusion study on March 05, 2025. Patient performed exercise as per Bong protocol and was injected 40 mCi of sestamibi once target heart rate was achieved. Images were obtained using the SPECT gamma camera interlaced with the gating device. Images were obtained in supine position. Resting perfusion study was performed on March 06, 2025. Patient was administered 40 mCi of sestamibi intravenously at rest. Images were then obtained in supine position. Images obtained without without CT attenuation. Total DLP 94 mGy-cm. Images were processed with the software and compared side to side in short axis, horizontal long axis and vertical long axis views. FINDINGS: Raw images were reviewed The stress perfusion study showed nonattenuated images show moderately reduced uptake in the basal inferior wall of the LV myocardium. There is also minimally reduced uptake in the mid inferior wall and basal septal wall of the LV myocardium. Attenuated corrected images show mildly reduced uptake in the apex of the LV myocardium. The gated study shows normal LV systolic function with calculated LVEF of 69%. LV cavity is normal in size. The gated study shows normal systolic wall thickening and contraction of segments. Resting study shows no change in perfusion pattern compared to stress perfusion study. Gating at rest reveals normal systolic wall motion with ejection fraction at 64%. The findings are consistent with normal myocardial perfusion. NM/NM cardiolite stress test IMPRESSION: 1. Myocardial perfusion imaging study shows normal myocardial perfusion. 2. Gated LVEF is 69%. 3. Transient ischemic dilatation not present. EKG revealed negative for ischemia. Electronically signed by: Antwon Pritchard MD 03/06/2025 05:10 PM EDT
--- NOTE | 2025-03-05 09:07 | CA_ITS ---
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 Left Ventricle Normal left ventricular size, thickness, and systolic function. The visually estimated ejection fraction is between 60-65%. Spectral Doppler is indicative of a normal filling pattern. Right Ventricle Normal right ventricular cavity size and systolic function. Atria Both atria are normal in size. There is no evidence of interatrial shunt. Aortic Valve Normal aortic valve structure and function. There is no aortic valve stenosis. There is no aortic valve regurgitation. Mitral Valve Normal mitral valve structure and function. There is trace mitral valve regurgitation. There is no mitral valve stenosis. Pulmonic Valve The pulmonic valve is likely normal. Tricuspid Valve Normal tricuspid valve structure. Tricuspid regurgitation envelope is inadequate for calculation of right ventricular systolic pressure. Normal right atrial pressure. Great Vessels All visible segments of the aorta are normal in size. The pulmonary artery was not well visualized. Venous The inferior vena cava is normal in size and collapses greater than 50% with inspiration. Pericardium/Pleural There is no evidence of pericardial effusion. Prior Study Comparison No prior study available for comparison. Measurements 2D Linear Measurements IVSd: 0.79 0.6-0.9/0.6-1.0 cm LVIDd: 4.83 3.9-5.3/4.2-5.9 cm LVIDd Index: 2.14 2.4-3.2/2.2-3.1 cm/m2 LVIDs: 3.02 2.0-3.6 cm LVPWd: 0.85 0.7-1.1 cm LA Diam: 3.20 2.7-3.8/3.0-4.0 cm LAIDs Index: 1.42 1.5-2.3 cm/m2 LV Mass: 164.23 67-162/88-224 g LV Mass Index: 72.67 43-95/49-115 g/m2 LVOT Diam: 2.20 3.0+(-)1.3 cm 2D Systolic Function EF 4C: 56.20 >55% EF 2C: 63.30 >55% EF BiP: 60.10 >55% Mitral Valve MV Pk E: 0.73 MV PK A: 0.39 MV Decel Time: 219.00 E/A: 1.90 E'Lateral: 11.20 E'Medial: 10.20 E/E' Med: 7.10 E/E' Lat: 6.50 PHT: 64.00 MVA PHT: 3.44 Decel Miner: 3.32 Aortic Valve AoV Pk Maurilio: 1.56 AoV Mn Maurilio: 1.06 AoV VTI: 0.31 AoV Pk Grad: 10.00 Aov Mn Grad: 5.00 RULA Cont.VTI: 2.87 LVOT LVOT Pk Maurilio: 1.19 LVOT Mn Maurilio: 0.76 LVOT VTI: 0.23 LVOT Pk Grad: 6.00 LVOT Mn Grad: 3.00 LVOT Diam: 2.20 LVOT Area: 3.80 Diastolic Function MV Pk E: 0.73 MV Pk A: 0.39 E/A: 1.90 E'Medial: 10.20 E/E' Med: 7.10 E' Laterial: 11.20 E/E' Lat: 6.50 Right Ventricle TAPSE (mm): 24.40 TVS' Maurilio: 13.80 Tricuspid Valve RA Press: 3.00 Great Vessels Aorta Sinus of Valsalva: 3.12 2.0-3.[address] Ridge: 2.30 1.7-3.4 cm Ao Asc: 3.20 2.1-3.4 cm Updated in Other Vendor System with Status of Final Antwon Pritchard MD electronically signed on 03/05/2025 1:15:57 PM with status of Final
--- NOTE | 2025-03-05 09:07 | CA_ITS ---
Acquisition Time: 2025-03-05 10:03:29 Total Exercise Time: 00:08:15 Test Indications: CP Medications: DULOXETINE MIRTAZAPINE Protocol: DAMON Max HR: 142 BPM 81% of Pred: 175 BPM Max BP: 164/58 mmHG Max Work Load: 10.1 METS Exercise stress test with exercise 8 mins 15 secs of Damon Protocol, achieving 81% MPHR, reporting 4/10 left sided chest pressure at baseline that moved to across the chest and upto 7/10 with exercise, with severe SOB, without any arrythmias, with normotensive response to exercise. Without any EKG changes meeting criteria for ischemia. In recovery, chest pressure gradually returned to baseline at left sided 4/10. Breathing returned to baseline. Nuclear images pending. Test reviewed with Dr. Rajput. Referred By: Brian Bernard Electronically Signed By: Blue Cool
--- OUTSIDE RECORDS SUMMARY | 2025-03-05 10:18 | XMS_ITS | Data Portability ---
Author Organization RICHAR Saleh [facility], [address] Address [address] [place] [address] Assessment No assessment recorded. Plan of Treatment [...] SNOMED-CT Code Diagnosis ICD10 Code Diagnosis Note [id number] [facility] [address] [place] [address] 03/23/2020 17:00:12 03/23/2020 17:49:57 [id number] [address] [facility] [address] [place] [phone] 05/22/2020 11:25:42 05/22/2020 12:43:06 [id number] [address] [place] [address] 04/02/2020 12:22:09 04/02/2020 13:16:30 [id number] [address] [address] [address] _[facility] cope[facility]Memo rialDr [address] [facility] [place] [address] 05/22/2020 15:00:47 05/22/2020 16:59:51 [id number] [address] [place] [address] 03/11/2022 13:21:22 03/11/2022 14:18:19 [id number] RICHAR AGRAWAL [address] [place] [address] 05/18/2023 12:17:25 05/18/2023 13:19:36 History and physical examination, occupation [id number] Z02.1 Health Concerns Section Related Observation LastModified by Organization Detai ls LastModified Time None Recorded Concern Status LastModified by Organization Details LastModified Time None Recorded Advance Directives Directive None Recorded Payers Insurance Date Sequence Insurance Name Policy Number Policy Brady Covered Member ID Brady Member ID Guarantor Name 05/18/2023 OC-ESCREEN Escreen PREMIER EDY Caity Ramires
== END ==
LOC: HO.CARD 09:04
PROVIDERS: PCP Nurse Practitioner Family; Visit Provider Nurse Practitioner Family
DX: R07.89 Other chest pain (principal)
CPT/HCPCS: 78452; 93017; 93306; A9500; Q9957

== ENCOUNTER → 2025-03-05 09:07 | Outpatient (BNV) | payer OTHER, SELFPAY | PROVIDERS: PCP Nurse Practitioner Family | DX: R07.9 Chest pain, unspecified (principal); R06.02 Shortness of breath | CPT/HCPCS: 78452; 93016; 93018; 93320; 93325; 93350; 93352 ==

== ENCOUNTER 2025-03-07 09:03 | Outpatient (REF) | payer OTHER, SELFPAY ==
--- NOTE | ~2025-03-07 | US_ITS ---
EXAMINATION: US ABDOMEN HISTORY: R74.8 - Abnormal levels of other serum enzymes TECHNIQUE: Real-time grayscale ultrasound imaging of the abdomen was performed and images were reviewed. COMPARISON: Correlation is made with a CT of the abdomen without contrast dated 01/08/2009. FINDINGS: Liver: The right lobe of the liver measures 18.0 cm in size. The left lobe of the liver measures 11.5 cm in size. The liver demonstrates increased echotexture, consistent with steatosis. No focal mass or intrahepatic biliary ductal dilatation is identified. There is normal hepatopedal flow in the portal vein. Gallbladder and biliary tree: The gallbladder is unremarkable, without evidence of calculi, wall thickening, or pericholecystic fluid. There is no sonographic Yanez sign. The common bile duct is normal in caliber measuring 6 mm. Kidneys: The right kidney measures 11.8 cm in length. The left kidney measures 12.3 cm in length. The kidneys are unremarkable, without evidence of masses, hydronephrosis, or calculi. Pancreas: The pancreatic head, neck, and body are heterogeneous in appearance. The pancreatic tail is obscured by bowel gas. Spleen: The spleen is normal in size and contour, measuring 10.4 cm in length. Abdominal aorta and inferior vena cava: The visualized portions of the abdominal aorta and inferior vena cava are normal in caliber. There is no free fluid in the abdomen. US/US abdomen complete IMPRESSION: 1. Hepatomegaly and hepatic steatosis. 2. Heterogeneous appearing pancreas. This is of uncertain significance. Further imaging could include pancreatic protocol CT or MRI. Electronically signed by: Daniel Ndiaye MD 03/07/2025 09:47 AM EDT
--- OUTSIDE RECORDS SUMMARY | 2025-03-07 09:21 | XMS_ITS | Data Portability ---
Author Organization RICHAR Saleh [facility], [address] Address [address] [place] [address] Assessment No assessment recorded. Plan of Treatment [...] SNOMED-CT Code Diagnosis ICD10 Code Diagnosis Note [id number] _[facility] [address] [address] [facility] [address] [place] [address] 03/23/2020 17:00:12 03/23/2020 17:49:57 [id number] [facility] [facility] [address] [place] [phone] 05/22/2020 11:25:42 05/22/2020 12:43:06 [id number] [address] [place] [address] 04/02/2020 12:22:09 04/02/2020 13:16:30 [id number] _[facility] [address] _[facility]Dr [address] [facility] [place] [address] 05/22/2020 15:00:47 05/22/2020 16:59:51 [id number] [address] [place] [address] 03/11/2022 13:21:22 03/11/2022 14:18:19 [id number] RICHAR AGRAWAL [address] [place] [address] 05/18/2023 12:17:25 05/18/2023 13:19:36 History and physical examination, occupation [id number] Z02.1 Health Concerns Section Related Observation LastModified by Organization Detai ls LastModified Time None Recorded Concern Status LastModified by Organization Details LastModified Time None Recorded Advance Directives Directive None Recorded Payers Insurance Date Sequence Insurance Name Policy Number Policy Brady Covered Member ID Brady Member ID Guarantor Name 05/18/2023 OC-ESCREEN Escreen PREMIER EDY Caity Ramires
== END 2025-03-07 09:04 | disposition home or self-care (01) ==
LOC: HO.US 09:03
PROVIDERS: PCP Nurse Practitioner Family; Visit Provider Nurse Practitioner Family
DX: R74.8 Abnormal levels of other serum enzymes (principal)
CPT/HCPCS: 76700

== ENCOUNTER → 2025-03-07 09:05 | Outpatient (BNV) | payer OTHER, SELFPAY | PROVIDERS: PCP Nurse Practitioner Family; Visit Provider Radiology Diagnostic Radiology | DX: R16.0 Hepatomegaly, not elsewhere classified (principal); K76.0 Fatty (change of) liver, not elsewhere classified; R93.89 Abnormal findings on diagnostic imaging of other specified body structures | CPT/HCPCS: 76700 ==

== ENCOUNTER → 2025-03-25 10:30 | Outpatient (BNV) | payer OTHER, SELFPAY | PROVIDERS: PCP Nurse Practitioner Family; Visit Provider Radiology Diagnostic Radiology | DX: Q44.6 Cystic disease of liver (principal) | CPT/HCPCS: 74183 ==

== ENCOUNTER 2025-03-25 10:32 | Outpatient (REF) | payer OTHER, SELFPAY ==
--- NOTE | ~2025-03-25 | MR_ITS ---
EXAMINATION: MR ABDOMEN WITHOUT THEN WITH IV CONTRAST HISTORY: R74.8 - Abnormal levels of other serum enzymes COMPARISON: Correlation is made with an abdominal ultrasound dated 03/07/2025. TECHNIQUE: Axial in and out of phase T1-weighted gradient echo, axial diffusion weighted, and axial and coronal HASTE T2 with fat saturation images were obtained through the abdomen. 3D MRCP Reconstructed and thin and thick slab images of the biliary tree were obtained. Subsequently, fat suppressed axial and coronal T1-weighted images were obtained after the intravenous administration of 10 mL Gadavist. FINDINGS: Liver: There is no loss of signal intensity in the liver on opposed phase imaging to suggest steatosis. Multiple cysts are seen scattered throughout the liver, the largest of which is in the right lobe measuring 1.5 cm in size. There is no enhancing liver mass. The hepatic and portal veins are patent. There is no intra- or extrahepatic biliary dilatation. Gallbladder: No gallstones are identified. Spleen: The spleen is unremarkable. Pancreas: The pancreas is unremarkable. The pancreatic duct is normal in caliber. Adrenals: The adrenal glands are unremarkable. Kidneys: There are tiny cysts at the upper pole of the right kidney. The left kidney is unremarkable. There is no hydronephrosis. Lymph nodes: There is no retroperitoneal lymphadenopathy in the upper abdomen. Fluid: There is no ascites in the upper abdomen. Visualized bowel: The visualized bowels loops are unremarkable in appearance. Visualized bones: The visualized bones demonstrate normal marrow signal intensity. MR/MR abdomen wo/w con IMPRESSION: Scattered hepatic and right renal cysts as described. Otherwise unremarkable MRI of the abdomen without and with contrast. Electronically signed by: Daniel Ndiaye MD 03/25/2025 01:11 PM EDT
[2025-03-25] MEDS: gadobutroL 10 ML VIAL IVPUSH (11:41)
--- OUTSIDE RECORDS SUMMARY | 2025-03-25 12:19 | XMS_ITS | Data Portability ---
Author Organization RICHAR Saleh [facility], [address] Address [address] [place] [address] Assessment No assessment recorded. Plan of Treatment [...] SNOMED-CT Code Diagnosis ICD10 Code Diagnosis Note [id number] _[facility] [address] [place] [phone] 03/23/2020 17:00:12 03/23/2020 17:49:57 [id number] [facility] [facility] [address] [place] [phone] 05/22/2020 11:25:42 05/22/2020 12:43:06 [id number] [address] [place] [address] 04/02/2020 12:22:09 04/02/2020 13:16:30 [id number] _[facility] [address] _[facility] [address] [facility] [place] [address] 05/22/2020 15:00:47 05/22/2020 16:59:51 [id number] [address] [place] [address] 03/11/2022 13:21:22 03/11/2022 14:18:19 [id number] RICHAR AGRAWAL [address] [place] [address] 05/18/2023 12:17:25 05/18/2023 13:19:36 History and physical examination, occupation [id number] Z02.1 Health Concerns Section Related Observation LastModified by Organization Detai ls LastModified Time None Recorded Concern Status LastModified by Organization Details LastModified Time None Recorded Advance Directives Directive None Recorded Payers Insurance Date Sequence Insurance Name Policy Number Policy Brady Covered Member ID Brady Member ID Guarantor Name 05/18/2023 OC-ESCREEN Escreen PREMIER EDY Caity Ramires
== END 2025-03-25 10:33 | disposition home or self-care (01) ==
LOC: HO.MRI 10:32
PROVIDERS: PCP Nurse Practitioner Family; Visit Provider Nurse Practitioner Family
DX: R74.8 Abnormal levels of other serum enzymes (principal); Q45.3 Other congenital malformations of pancreas and pancreatic duct
CPT/HCPCS: 74183; A9585

== ENCOUNTER 2025-04-28 09:51 | Outpatient (AMB) | payer OTHER, SELFPAY ==
[2025-04-28 10:00] VITALS: BP 142/78; PULSE 78; RESP 18; TEMP 37.1; O2SAT 98; BMI 36.6
--- NOTE | 2025-04-28 10:00 | MHC.PC.OV ---
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 History of Present Illness The patient is a 44-year-old male presenting with cervical and lumbar radiculopathy. He reports ongoing cervical neck pain with radiculopathy, experiencing severe pain with neck flexion and rotation, accompanied by radicular symptoms in the left upper extremity. The patient also experiences lumbar pain with radiculopathy, with positive straight leg raise on the right side and difficulty with heel walking. He has undergone multiple lower back injections, which did not alleviate his symptoms and may have exacerbated them. The patient denies any signs or symptoms of cauda equina syndrome. The patient is missing the most recent MRIs of the cervical and lumbar spine, which were performed last fall. He expresses a desire to consult with a neurosurgeon, and this plan is agreed upon. Social History Health Maintenance Review of Systems - Musculoskeletal: Reports cervical neck pain with radiculopathy, lumbar pain with radiculopathy - Neurological: Denies signs or symptoms of cauda equina syndrome Physical Exam General: Cooperative, healthy appearing, comfortable, no acute distress and well developed Orientation: Patient oriented x3 Limitations: No limitations Head: Normal to inspection Ears: Hearing grossly normal bilaterally Nose: Normal external nose present Face and sinus: Normal facial exam Eyes: Appearance normal, both eyes and all related structures Neck: Severe pain in cervical spine with turning head side to side and neck flexion, radiculopathy symptoms down the left upper extremity Respiratory: Normal respiratory effort and able to speak in complete sentences. Clear to auscultation bilaterally Cardiovascular: Regular rate and rhythm. Normal S1 and S2 GI: Normal to inspection. Soft to palpation and nontender Skin: No rashes or lesions noted Neuro: Patient oriented x3 Extremities: Positive straight leg on the right side. Positive patellar reflex worse with heel walking, difficulty with heel walking due to lower transverse back pain radiating down the right lower extremity Results Plan The patient will be referred to a neurosurgeon for further evaluation and management of his cervical and lumbar radiculopathy. The most recent MRIs of the cervical and lumbar spine, which were performed last fall, will be obtained to assist in the evaluation. Given the lack of improvement with previous lower back injections, alternative treatment options will be considered by the neurosurgeon. Discussion Notes I discussed with the patient the plan to refer him to a neurosurgeon for further evaluation of his cervical and lumbar radiculopathy. We will obtain the most recent MRIs to aid in the assessment. I explained that given the lack of improvement with previous injections, the neurosurgeon might consider alternative treatment options. Patient Instructions - Follow up with the neurosurgeon as scheduled. - Ensure to bring any previous MRI results to the neurosurgeon appointment. [facility] Medical History Dyslipidemia Surgical History Hx of appendectomy Social History Housing: House Patient Tobacco Use Status: Former Tobacco user e-Cigarette/Vaping Use: Never Used service: No Current occupational status: employed Cognitive needs: No Hearing needs: No Vision needs: No Questionnaire Thrive Questionnaire Date Thrive assessed: 01/21/25 EMMA-7 AMB Questionnaire EMMA-7 Date EMMA - 7 assessed: 01/21/25 Source: Developed by Drs. Daniel Campo, Viri Adams, Jersey Pandya and colleagues, with an educational veronika from [facility]. Physical exam (Primary Care) Vital Signs: Last Vital Signs Temp 98.7 F 04/28/25 10:00 Pulse 78 04/28/25 10:00 Resp 18 04/28/25 10:00 BP 142/78 H 04/28/25 10:00 Pulse Ox 98 04/28/25 10:00 Oxygen Delivery Method Room Air 04/28/25 10:00 BMI result Body Mass Index 36.6 Tobacco/Smoking Status: Tobacco use Status Tobacco use date assessed 04/28/25 04/28/25 10:04 Patient Tobacco Use Status Former Tobacco user 04/28/25 10:04 e-Cigarette/Vaping Use Never Used 04/28/25 10:04 Thrive Assessment: Date of Thrive Assessment Date Thrive assessed 01/21/25 04/28/25 10:04 Coding Level of Care Code Est Pt Level 3 (38088) Diagnoses Cervical radiculopathy M54.12 Lumbar radicular pain M54.16 Assessment & Plan Assessment & Plan (1) Cervical radiculopathy: Code(s): M54.12 - Radiculopathy, cervical region Category: Medical (2) Lumbar radicular pain: Code(s): M54.16 - Radiculopathy, lumbar region Category: Medical Plan .
--- OUTSIDE RECORDS SUMMARY | 2025-04-28 10:24 | XMS_ITS | Data Portability ---
Author Organization [facility], [address] Address [address] [place] [address] Assessment No assessment recorded. Plan of Treatment [...] -UDS Send Out Template DOT completed [facility] 05/18/2023 13:16:37 Imaging Results None recorded. [...] SNOMED-CT Code Diagnosis ICD10 Code Diagnosis Note [id number] [facility] [address] [address] 03/23/2020 17:00:12 03/23/2020 17:49:57 [id number] [facility] [address] [place] [address] 05/22/2020 11:25:42 05/22/2020 12:43:06 [id number] [address] [place] [address] 04/02/2020 12:22:09 04/02/2020 13:16:30 [id number] [facility] [facility] [address] [facility] N[place] [address] 05/22/2020 15:00:47 05/22/2020 16:59:51 [id number] [address] [place] [address] 03/11/2022 13:21:22 03/11/2022 14:18:19 [id number] RICHAR AGRAWAL [address] [place] [address] 05/18/2023 12:17:25 05/18/2023 13:19:36 History and physical examination, occupation [id number] Z02.1 Health Concerns Section Related Observation LastModified by Organization Detai ls LastModified Time None Recorded Concern Status LastModified by Organization Details LastModified Time None Recorded Advance Directives Directive None Recorded Payers Insurance Date Sequence Insurance Name Policy Number Policy Brady Covered Member ID Brady Member ID Guarantor Name 05/18/2023 [employer]-ESCREEN [employer]MI[employer] EDY Caity Ramires
== END 2025-04-28 11:48 | disposition home or self-care (01) ==
LOC: HO.HMCC 09:52
PROVIDERS: PCP Nurse Practitioner Family; Visit Provider Nurse Practitioner Family
DX: M54.12 Radiculopathy, cervical region (principal); M54.16 Radiculopathy, lumbar region

== ENCOUNTER → 2025-04-28 09:51 | Outpatient (BNVA) | payer OTHER, SELFPAY | PROVIDERS: PCP Nurse Practitioner Family; Visit Provider Nurse Practitioner Family | DX: M54.12 Radiculopathy, cervical region (principal); M54.16 Radiculopathy, lumbar region | CPT/HCPCS: 99212 ==

== ENCOUNTER 2025-06-12 12:50 | Outpatient (AMB) | payer OTHER, SELFPAY ==
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
[2025-06-12 13:02] VITALS: BMI 36.6
== END 2025-06-12 13:35 | disposition home or self-care (01) ==
LOC: HO.HNS 12:51
PROVIDERS: PCP Nurse Practitioner Family; Referring Provider Nurse Practitioner Family; Visit Provider Physician Assistant
DX: M54.16 Radiculopathy, lumbar region (principal)
CPT/HCPCS: 99204

== ENCOUNTER → 2025-06-12 12:50 | Outpatient (BNVA) | payer OTHER, SELFPAY | PROVIDERS: PCP Nurse Practitioner Family; Referring Provider Nurse Practitioner Family; Visit Provider Physician Assistant | DX: M54.16 Radiculopathy, lumbar region (principal) | CPT/HCPCS: 99202 ==

== ENCOUNTER → 2025-07-08 09:53 | Outpatient (BNV) | payer OTHER, SELFPAY | PROVIDERS: PCP Nurse Practitioner Family; Visit Provider Radiology Vascular & Interventional Radiology | DX: M54.16 Radiculopathy, lumbar region (principal); M51.369 Other intervertebral disc degeneration, lumbar region without mention of lumbar back pain or lower extremity pain | CPT/HCPCS: 72148 ==

== ENCOUNTER 2025-07-08 09:59 | Outpatient (REF) | payer OTHER, SELFPAY ==
--- NOTE | ~2025-07-08 | MR_ITS ---
CLINICAL HISTORY: M54.16 - Radiculopathy, lumbar region MR lumbar spine without gadolinium Comparison: None Findings: Normal alignment. No acute fracture or pathologic bone lesion. Cauda equina and conus medullaris within normal limits. There is disc space narrowing and disc desiccation at L4-L5 with a moderate posterior disc protrusion. Paravertebral soft tissues are unremarkable. Individual levels: T11-L4: Unremarkable. L4-L5: Moderate broad-based posterior disc protrusion with small disc fissure noted. There is mild bilateral neural foraminal narrowing, slbxu-mziwdmj-wyzj-left and minimal central canal narrowing. There is also mass effect upon the descending right-sided L5 nerve root within the lateral recess. L5-S1: Unremarkable. Impression: Degenerative changes with disc protrusion at L4-L5 as detailed. This document has been electronically signed by: Spike Samaniego MD on 07/09/2025 09:48:52
== END 2025-07-08 10:00 | disposition home or self-care (01) ==
LOC: HO.MRI 09:59
PROVIDERS: PCP Nurse Practitioner Family; Visit Provider Physician Assistant
DX: M54.16 Radiculopathy, lumbar region (principal)
CPT/HCPCS: 72148

== ENCOUNTER 2025-07-23 10:26 | Outpatient (REF) | payer OTHER, SELFPAY ==
[2025-07-23 12:22] LABS: Alanine Aminotransferase 77 U/L (0-40); Albumin Level 4.7 g/dL (3.5-5.0); Alkaline Phosphatase 66 U/L (39-117); Aspartate Amino Transferase 74 U/L (5-37); Total Protein 7.4 g/dL (6.5-8.0)
== END 2025-07-23 10:27 | disposition home or self-care (01) ==
LOC: HO.LAB 10:26
PROVIDERS: PCP Nurse Practitioner Family; Visit Provider Internal Medicine
DX: R74.8 Abnormal levels of other serum enzymes (principal); K76.89 Other specified diseases of liver; Z12.11 Encounter for screening for malignant neoplasm of colon
CPT/HCPCS: 36415; 80076; 99202

== ENCOUNTER 2025-07-23 10:26 | Outpatient (AMB) | payer OTHER, SELFPAY ==
--- NOTE | 2025-07-23 10:28 | A.OFFVIS_ITS ---
Vital Signs 07/23/25 10:29 Height 5 ft 9 in Weight 253 lb 8.505 oz BMI 37.4 BP 133/74 Blood Pressure Location Lt brachial Position Sitting Pulse 80 Intake Visit Reasons: Other specified diseases of liver Intake Note: Jovani presents in the office as a new patient for disease of the liver. CC: States he has some bloating at times with discomfort and constipation often. He states that he goes every 2 days or so. 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 In terms of liver cysts, pt is asymptomatic no abd pain, N,V. Drinks etOH 1-2 times a week. Smokes cigarettes socially may be 1-2 times a week. No fam hx of liver disease. MRI shows simple liver cysts. In terms of CRC screening. Average risk. No GI sx reported including abd pain, rectal bleeding, diarrhea. No fam hx of polyps or CRC in first degree relatives. PFSH Medical History Dyslipidemia Surgical History Hx of appendectomy Social History Housing: House Patient Tobacco Use Status: Former Tobacco user e-Cigarette/Vaping Use: Never Used service: No Current occupational status: employed Cognitive needs: No Hearing needs: No Vision needs: No Review of Systems Const All systems reviewed & are unremarkable except as noted in HPI and below Physical Exam Exam Exam: middle aged male with obesity nonicteric abd soft nontender nondsitended Vital Signs: Last Vital Signs Pulse 80 07/23/25 10:29 BP 133/74 07/23/25 10:29 BMI result Body Mass Index 37.4 Assessment & Plan Assessment & Plan (1) Elevated liver enzymes: Code(s): R74.8 - Abnormal levels of other serum enzymes Category: Medical (2) Liver cyst: Code(s): K76.89 - Other specified diseases of liver Category: Medical (3) Screening for colon cancer: Code(s): Z12.11 - Encounter for screening for malignant neoplasm of colon Category: Medical Plan - Elevated LFTs One time abnormal labs in January. Will recheck if persistently abnl, may need w/up. - Liver cysts Has simple hepatic cysts. No further work up including surveillance imaging indicated at this time. - CRC screening Average risk. Prefers stool based testing. Cologuard kit requested. Pt aware re need for diagnostic colo if pos, otherwise will need repeat screening in 3 years. Follow up contingent on above Orders: Orders Liver Panel Today R74.8 - Abnormal levels of other serum enzymes Coding Level of Care Code New Pt Level 4 (23085) Complex EM visit Add On G2211 Diagnoses Elevated liver enzymes R74.8 Liver cyst K76.89 Screening for colon cancer Z12.11
[2025-07-23 10:29] VITALS: BP 133/74; PULSE 80; BMI 37.4
== END 2025-07-23 10:57 | disposition home or self-care (01) ==
LOC: HO.HGI 10:26
PROVIDERS: PCP Nurse Practitioner Family; Visit Provider Internal Medicine
DX: R74.01 Elevation of levels of liver transaminase levels (principal); K76.89 Other specified diseases of liver
CPT/HCPCS: 99204

== ENCOUNTER 2025-07-24 10:26 | Outpatient (REF) | payer OTHER, SELFPAY ==
[2025-07-24 17:04] LABS: Cholesterol 241 mg/dL (<200); HDL Cholesterol 42 mg/dL (>40); Triglycerides 231 mg/dL (<150)
== END 2025-07-24 10:27 | disposition home or self-care (01) ==
LOC: HO.HMGCLDS 10:26
PROVIDERS: PCP Nurse Practitioner Family; Visit Provider Nurse Practitioner Family
DX: R74.8 Abnormal levels of other serum enzymes (principal); E78.5 Hyperlipidemia, unspecified; R07.89 Other chest pain; M54.50 Low back pain, unspecified
CPT/HCPCS: 36415; 80061; 86704; 86706; 86709; 87340; 96127; 99212

== ENCOUNTER 2025-07-24 10:26 | Outpatient (AMB) | payer OTHER, SELFPAY ==
[2025-07-24 10:50] VITALS: BP 114/70; PULSE 70; RESP 16; O2SAT 98; BMI 37.5
--- NOTE | 2025-07-24 10:50 | A.OFFPC_ITS ---
Vital Signs 07/24/25 10:50 Height 5 ft 9 in Weight 254 lb BMI 37.5 BP 114/70 Blood Pressure Location Lt brachial Position Sitting Respiration 16 Pulse 70 Pulse Source Pulse Oximeter Pulse Oximetry (%) 98 Oxygen Delivery Method Room Air Intake Visit Reasons: 6m Follow up Allergies No Known Allergies Allergy (Verified 07/23/25 10:30) Medication List - Last Reconciled 07/24/25 by MEI LópezP- aripiprazole 2 mg PO DAILY buspirone 5 mg PO BID PRN duloxetine 20 mg PO BID mirtazapine 7.5 mg PO BEDTIME Tobacco use date assessed: 04/28/25 Dental Screening Dental Screen Date: 01/21/25 HPI 6m Follow up HPI Details Chief Complaint The patient presents for follow-up on dyslipidemia management. History of Present Illness The patient is a 44-year-old male presenting with dyslipidemia. He denies experiencing any chest pain, shortness of breath, headaches, blurred vision, or dizziness. The patient reports ongoing lower back pain, for which he is scheduled to undergo surgery in the near future. He believes this intervention is necessary and anticipates improvement post-surgery. He has been evaluated by a associate biological sales due to elevated liver enzymes, which are suspected to be related to weight gain and inactivity due to his back pain. A simple hepatic cyst was identified, but no further imaging is required at this time. The patient is currently not on any medications for cholesterol management, but plans to reassess after obtaining fasting lab results today. Social History - Level of activity: The patient is curr ently inactive due to lower back pain. Health Maintenance - Plan to reassess cholesterol managemen t after obtaining fasting lab results today. Review of Systems - Cardiovascular: Denies chest pain or s hortness of breath. - Neurological: Denies headaches, blurre d vision, or dizziness. Physical Exam General: Cooperative, healthy appearing, comfortable, no acute distress and well developed, obese Orientation: Patient oriented x3 Limitations: abnormal gait due to radiculopathy (lower back) Head: Normal to inspection Ears: Hearing grossly normal bilaterally Nose: Normal external nose present Face and sinus: Normal facial exam Eyes: Appearance normal, both eyes and all related structures Neck: Normal visual inspection and Yes full ROM Respiratory: Normal respiratory effort and able to speak in complete sentences. Clear to auscultation bilaterally Cardiovascular: Regular rate and rhythm. Normal S1 and S2 GI: Normal to inspection. Soft to palpation and nontender Skin: No rashes or lesions noted Neuro: Patient oriented x3 Extremities: Normal to inspection, no edema Results Plan 1. Dyslipidemia The patient is currently not on any medications for cholesterol management. Fasting lab results will be obtained today to reassess the condition. 2. Elevated Liver Enzymes The patient has been evaluated by a associate biological sales for elevated liver enzymes. The elevation is suspected to be related to weight gain and inactivity due to lower back pain. 3. Simple Hepatic Cyst A simple hepatic cyst was identified, and no further imaging is required at this time. 4. Lower Back Pain The patient is scheduled for surgery to address lower back pain. He anticipates improvement following the surgical intervention. no signs of cauda equina Discussion Notes I discussed with the patient the need for fasting lab tests to reassess his cholesterol levels. We also reviewed the plan for his upcoming surgery to address lower back pain and the potential benefits of this intervention. Patient Instructions - Undergo fasting lab tests today to chandler ssess cholesterol levels. - Follow up with the associate biological sales as needed for liver enzyme monitoring. - Prepare for upcoming surgery for lower back pain and follow post-operative care instructions. [facility] Medical History Dyslipidemia Surgical History Hx of appendectomy Social History Housing: House Patient Tobacco Use Status: Former Tobacco user e-Cigarette/Vaping Use: Never Used service: No Current occupational status: employed Cognitive needs: No Hearing needs: No Vision needs: No Questionnaire PHQ-9 Over the last 2 weeks, how often have you been bothered by any of the following problems? 1. Little interest or pleasure in doing things: not at all 2. Feeling down, depressed, or hopeless: not at all 3. Trouble falling or staying asleep, or sleeping too much: nearly every day 4. Feeling tired or having little energy: nearly every day 5. Poor appetite or overeating: nearly every day 6. Feeling bad about yourself - or that you are a failure or have let yourself or your family down: not at all 7. Trouble concentrating on things, such as reading the newspaper or watching television: nearly every day 8. Moving or speaking so slowly that other people could have noticed. Or the opposite - being so fidgety or restless that you have been moving around a lot more than usual: nearly every day 9. Thoughts that you would be better off or of hurting yourself in some way: not at all Total score: 15 Depression Screening Interpretation: Positive (denies any si or hi) Depression Screening Follow-up: Existing condition and In treatment Depression Screening Done: Yes Source: Developed by Drs. Daniel Campo, Viri Adams, Jersey Pandya and colleagues, with an educational veronika from [employer]. Thrive Questionnaire Date Thrive assessed: 01/21/25 I am a: Patient What is your living situation today?: I have a place to live, but I am worried about losing it in the future Within the past 12 months, did the food you bought not last and you didn't have the money to get more?: Never true Within the past 12 months, did you worry whether your food would run out before you got money to buy more?: Sometimes True Do you have trouble paying for medicines?: No Do you have trouble getting transportation to medical appointments?: No Do you have trouble paying your heating and electricity bill?: Yes Do you have trouble taking care of your child, family member or friend?: Yes Do you have trouble with day-to-day activities such as bathing, preparing meals, shopping, managing finances, etc.?: Yes Are you currently unemployed and looking for a job?: No Are you interested in more education?: No Please select the resources that you would like help with: Utilities Currently or been in a relationship where the following occur: I choose not to answer THRIVE Score: 3 AUDIT C Alcohol Use Questionnaire (AUDIT-C) 1. How often do you have a drink containing alcohol?: Monthly or less 2. How many drinks containing alcohol do you have on a typical day when you are drinking?: 1 or 2 3. How often do you have six or more drinks on one occasion?: Monthly Total Score: 3 EMMA-7 AMB Questionnaire EMMA-7 Date EMMA - 7 assessed: 01/21/25 Feeling nervous, anxious, or on edge: 3 = Nearly every day Not being able to stop or control worryin = Nearly every day Worrying too much about different things: 3 = Nearly every day Trouble relaxin = Nearly every day Being so restless that it is hard to sit still: 2 = More than half the days Becoming easily annoyed or irritable: 0 = Not at all Feeling afraid as if something awful might happen: 0 = Not at all Total EMMA-7 score (0-4 normal; 5-9 mild; 10-14 moderate; 15-21 severe): 14 Source: Developed by Drs. Daniel Campo, Viri Adams, Jersey Pandya and colleagues, with an educational veronika from [employer]. EMMA-7 Assessment Billing EMMA-7 Assessment Tool: EMMA-7 Assessment 83912 (denies any si or hi, psychiatrist and therapist currently) Physical exam (Primary Care) Vital Signs: Last Vital Signs Pulse 70 07/24/25 10:50 Resp 16 07/24/25 10:50 BP 114/70 07/24/25 10:50 Pulse Ox 98 07/24/25 10:50 Oxygen Delivery Method Room Air 07/24/25 10:50 BMI result Body Mass Index 37.5 Tobacco/Smoking Status: Tobacco use Status Tobacco use date assessed 04/28/25 07/24/25 10:55 Patient Tobacco Use Status Former Tobacco user 07/24/25 10:55 e-Cigarette/Vaping Use Never Used 07/24/25 10:55 PHQ-9: PHQ-9 Score PHQ-9: Total score 15 07/24/25 10:55 Depression Screening Interpretation: Positive (denies any si or hi) Depression Screening Follow-up: Existing condition and In treatment Thrive Assessment: Date of Thrive Assessment Date Thrive assessed 01/21/25 07/24/25 10:55 Currently or been in a relationship where the following occur: I choose not to answer Coding Level of Care Code Est Pt Level 3 (80307) Diagnoses Dyslipidemia E78.5 Additional Codes EMMA-7 Assessment Billing - EMMA-7 Assessment Tool: EMMA-7 Assessment 24850 ([id number]) Assessment & Plan Assessment & Plan (1) Dyslipidemia: Code(s): E78.5 - Hyperlipidemia, unspecified Category: Medical Plan . Orders: Orders UA CC w/rflx Micro + Cult Today E78.5 - Hyperlipidemia, unspecified Lipid Panel Today E78.5 - Hyperlipidemia, unspecified Complete Blood Count Auto Diff Today E78.5 - Hyperlipidemia, unspecified Comprehensive [place]. Panel Fast Today E78.5 - Hyperlipidemia, unspecified TSH reflex Free T4 Today E78.5 - Hyperlipidemia, unspecified
== END 2025-07-24 11:44 | disposition home or self-care (01) ==
LOC: HO.HMCC 10:27
PROVIDERS: PCP Nurse Practitioner Family; Visit Provider Nurse Practitioner Family
DX: E78.5 Hyperlipidemia, unspecified (principal)

== ENCOUNTER 2025-08-27 06:05 | Day surgery (SDC) | payer OTHER, SELFPAY ==
--- OUTSIDE RECORDS SUMMARY | 2025-08-06 08:38 | XMS_ITS | Data Portability ---
Author Organization [facility], [address] Address [address] [place] [address] Assessment No assessment recorded. Plan of Treatment [...] Send Out Template DOT completed KRISTI Col[facility] 05/18/2023 13:16:37 Imaging Results None recorded. [...] Diagnosis SNOMED-CT Code Diagnosis ICD10 Code Diagnosis IMO Codes Diagnosis Note [id number] [facility] [address] [address] 03/23/2020 17:00:12 03/23/2020 17:49:57 [id number] [facility] [address] [address] 05/22/2020 11:25:42 05/22/2020 12:43:06 [id number] [address] [place] [address] 04/02/2020 12:22:09 04/02/2020 13:16:30 [id number][facility] [facility] [facility] [place] [address] 05/22/2020 15:00:47 05/22/2020 16:59:51 [id number] [address] [place] [address] 03/11/2022 13:21:22 03/11/2022 14:18:19 [id number] RICHAR AGRAWAL [address] [place] [address] 05/18/2023 12:17:25 05/18/2023 13:19:36 History and physical examination, occupation [id number] Z02.1 Health Concerns Section Related Observation LastModified by Organization Detai ls LastModified Time None Recorded Concern Status LastModified by Organization Details LastModified Time None Recorded Advance Directives Directive None Recorded Payers Insurance Date Sequence Insurance Name Policy Number Policy Brady Covered Member ID Brady Member ID Guarantor Name 05/18/2023 [employer]MI[employer] EYD Caity Ramires
[2025-08-15 12:21] VITALS: BP 141/81; PULSE 79; RESP 17; O2SAT 95; BMI 37.2
--- NOTE | 2025-08-15 12:42 | HO.ANESPROP2 ---
Documented by User: Romi Jason NP 08/21/25 14:07 HPI - Anesthesia Eval Consult details Narrative: 44yo M for L4-5 MicroLumbar discectomy, 08/27/25 No recent illness No CP/SOB with limited activity. Only limited by pain w/u with PCP for atypical CP with multiple ER visits 02/2025 - EKG, Echo, and Stress wnl. Pt denies further CP since testing complete High risk Stop-Bang. Reviewed post-op risks and encouraged f/u with PCP for sleep study. PMF Active Problems Active Problems: All Active Problems Lumbar radicular pain (Acute) Cervical radiculopathy (Acute) Screening for colon cancer (Acute) Liver cyst (Acute) Pancreatic abnormality (Acute) Stress (Acute) Chest discomfort (Acute) Elevated liver enzymes (Acute) Chest pain (Acute) Left ankle sprain (Acute) Screening PSA (prostate specific antigen) (Acute) Physical exam (Acute) Dyslipidemia (Acute) Past Medical History Medical History (Updated 08/15/25 @ 12:14 by Jazz Calderón RN) Back pain Depression Numbness Habitual snoring Dyslipidemia Family History Family history of problems with anesthesia: No Surgical History Surgical History (Updated 08/15/25 @ 12:36 by Jazz Calderón RN) Hx of appendectomy (~1999) History of Problems with Anesthesia: No Social History Social History Housing: House Are you a primary insurance healthcare consultant to a significant other at home: No Do you presently have visiting nurse or other home services: No Patient Tobacco Use Status: Former Tobacco user e-Cigarette/Vaping Use: Never Used Second Hand Smoke Exposure: No Use of substances other than those prescribed or required for medical reasons: No Have you been hit, kicked, punched, or otherwise hurt by someone within the past year? If so, by whom?: No Are you DNR?: No Advance Directives: No Advance Directives Information Provided: Yes Advance Directives on File: No service: No Current occupational status: employed Cognitive needs: No Hearing needs: No Vision needs: No Meds Allergies Allergy/AdvReac Type Severity Reaction Status Date / Time No Known Allergies Allergy Verified 07/23/25 10:30 Home Medications ?Medication ?Instructions ?Recorded ?Confirmed ?Last Taken ?Type mirtazapine 7.5 mg tablet 7.5 mg PO BEDTIME PRN Anxiety 01/21/25 08/15/25 Unknown History aripiprazole 2 mg tablet 2 mg PO DAILY PRN Anxiety 04/28/25 08/15/25 Unknown History buspirone 5 mg tablet 5 mg PO BID PRN Anxiety 07/23/25 08/15/25 Unknown History duloxetine 20 mg capsule,delayed 20 mg PO BID PRN Anxiety 07/23/25 08/15/25 Unknown History release Exam Height,Weight and Vital Signs: Height 5 ft 9 in Weight 114.305 kg Last Vital Signs Pulse 79 08/15/25 12:21 Resp 17 08/15/25 12:21 BP 141/81 H 08/15/25 12:21 Pulse Ox 95 08/15/25 12:21 O2 Del Method Room Air 08/15/25 12:21 Pertinent Lab Results Pertinent Lab Results: Laboratory Tests 01/20/25 08:02 WBC 6.2 Hgb 14.4 Hct 44.6 Plt Count 208 Sodium 141 Potassium 4.2 Chloride 105 Carbon Dioxide 27 BUN 18 H Creatinine 0.78 Narrative Narrative: EKG 01/2025 NSR @ 76 ECHO 02/2025 Conclusions: - Essentially normal study NM cardiolite stress test 02/2025 IMPRESSION: 1. Myocardial perfusion imaging study shows normal myocardial perfusion. 2. Gated LVEF is 69%. 3. Transient ischemic dilatation not present. EKG revealed negative for ischemia. Airway Mallampati Class: III TM Dist: >3cm Neck ROM: Full Partial: Upper Heart: RRR Lungs: CTAB Assessment and Plan Assessment Anesthesia Assessment: Anesthesia Plan Discussed and PAT Visit Final Anesthetic Review Family History of Problems with Anesthesia: No History of Problems with Anesthesia: No Documented by User: Isabell Delarosa MD 08/27/25 07:07 [facility] Past Medical History Medical History (Updated 08/15/25 @ 12:14 by Jazz Calderón RN) Back pain Depression Numbness Habitual snoring Dyslipidemia Surgical History Surgical History (Updated 08/15/25 @ 12:36 by Jazz Calderón RN) Hx of appendectomy (~1999) Social History Social History Housing: House Are you a primary insurance healthcare consultant to a significant other at home: No Do you presently have visiting nurse or other home services: No Patient Tobacco Use Status: Former Tobacco user e-Cigarette/Vaping Use: Never Used Second Hand Smoke Exposure: No Use of substances other than those prescribed or required for medical reasons: No Have you been hit, kicked, punched, or otherwise hurt by someone within the past year? If so, by whom?: No Are you DNR?: No Advance Directives: No Advance Directives Information Provided: Yes Advance Directives on File: No service: No Current occupational status: employed Cognitive needs: No Hearing needs: No Vision needs: No Meds Allergies Allergy/AdvReac Type Severity Reaction Status Date / Time No Known Allergies Allergy Verified 07/23/25 10:30 Home Medications ?Medication ?Instructions ?Recorded ?Confirmed ?Last Taken ?Type mirtazapine 7.5 mg tablet 7.5 mg PO BEDTIME PRN Anxiety 01/21/25 08/15/25 Unknown History aripiprazole 2 mg tablet 2 mg PO DAILY PRN Anxiety 04/28/25 08/15/25 Unknown History buspirone 5 mg tablet 5 mg PO BID PRN Anxiety 07/23/25 08/15/25 Unknown History duloxetine 20 mg capsule,delayed 20 mg PO BID PRN Anxiety 07/23/25 08/15/25 Unknown History release Assessment and Plan Assessment Anesthesia Assessment: Chart Reviewed Final Anesthetic Review NPO: Yes ASA Class: II Final Preanesthetic Review: No Changes in Pt Med Stat, Meds/Allgs Chart Reviewed and Consent Obtained/Reviewed Patient Risk: Low Procedure Risk: Intermediate Anesthetic Plan Anesthetic Plan: GA Disposition: Standard PACU
--- NOTE | ~2025-08-27 | FL_ITS ---
EXAMINATION: XR FLUOROSCOPY WITH IMAGES CLINICAL INFORMATION: L4-5 decompression COMPARISON: Lumbar spine 07/08/2025 TECHNIQUE: Fluoroscopy time: 4 seconds DAP: 4 mGycm2 Images: 1 FINDINGS: Single lateral image demonstrates surgical instruments projected posterior to the lowermost vertebral body. FL/FL guidance in OR IMPRESSION: Fluoroscopy provided in the operating room. See surgical report for details. Electronically signed by: Myron Matthews MD 08/28/2025 08:16 AM JUD
[2025-08-27 06:25] VITALS: BP 134/64; PULSE 87; RESP 16; TEMP 36.5; O2SAT 97; BMI 36.7
[2025-08-27] MEDS: Lactated Ringers 1,000 ML 100 ML IVCONT (06:34)
--- NOTE | 2025-08-27 06:59 | MHC.SHP ---
Pre-Procedural Eval Section A - 24 Hr Update-Section A only Date of Service: 08/27/25 Section B - Complete if H&P > 30 days Chief Complaint: Radiculopathy, lumbar region Allergies: Allergies Allergy/AdvReac Type Severity Reaction Status Date / Time No Known Allergies Allergy Verified 07/23/25 10:30 Review of Systems Sugical H&P ROS: Negative: Constitution, Cardiovascular, Respiratory, Neurological, Psychiatric, Hem-Onc, Allergic/Immunologic, Gastrointestinal, Genitourinary, Musculoskeletal, Integumentary, Endocrine and Eyes/Ears/Nose/Throat Exam Surgical H&P Exam: Not Evaluated: HEENT, Not Evaluated: Heart, Not Evaluated: Lungs, Not Evaluated: Extremities, Not Evaluated: Abdomen, Not Evaluated: Skin and Not Evaluated: Neurological Exam Comment: The patient is awake, alert, in no acute distress. Proposed surgical incision site is clean, dry, with no signs of recent trauma. Plan Diagnosis/Plan: Unchanged I have reviewed the history and physical and performed a pertinent physical examination on my patient. No changes have occurred unless specified. Plan remains the same, right-sided L4-5 microdiskectomy Time Spent With Patient Time: Total time managing care of this patient today __7__ minutes.
--- NOTE | 2025-08-27 08:44 | W.PM.OPN ---
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 I have explained the nature, purpose and benefits of the operation. I have discussed the risks and benefit of the operation including possible complications or adverse events with patient/family. Alternative(s) were discussed with the patient with their relative benefits and risks as well as the consequences of not accepting the operation were included in obtaining consent. Surgeon: MARK DAVIDSON MD, PHD Procedure Assisted By: cristel Ashford Description of Procedure this 44-year-old male suffering from right L5 radiculopathy with pain and numbness. An MRI shows severe L4-5 lateral recess stenosis with compression of the right L5 nerve root. There is a possible small disc herniation.. The patient was offered a decompression. The procedure complications were explained. The patient was consented. The patient was brought to the operating room and endotracheally intubated. The patient was turned in prone position on the Lucas frame. Prep and drape was done followed by timeout. The Physician bankruptcy legal assistant provided access. A mid lumbar incision was made followed by release of the paravertebral muscle On the right side to expose the L4-5 lamina and facet joints. An intraoperative x-ray was obtained to confirm the correct level. The microscope was brought in. I took over the procedure. The high-speed drill was used to do a L4 laminotomy until flavum ligament was reached. A #2 Kerrison was used to expand the laminotomy near flush to the pedicles and to include a partial facetectomy. The flavum ligament was opened to visualize the underlying L5 nerve root. The L5 nerve root was compressed due to lateral recess stenosis from the flavum ligament. The flavum ligament was further resected to decompress the L5 nerve root over his trajectory. A nerve hook could be easily passed under the nerve root , a sign of adequate decompression. The disc space was inspected but no disc herniation was found. The microscope was removed. Hemostasis was done. The physician bankruptcy legal assistant close the Incision in 2 layers. Steri-Strips were used to approximate incision. An OpSite with Tegaderm was used to cover the incision. All sponge needle counts were correct. Patient was extubated and transported in stable is to recovery room. Anesthesia: General Estimated Blood Loss (ml): 25 Complications: None Duration of Surgery: Under 60 Minutes Postoperative Plan: Discharge to home
--- NOTE | 2025-08-27 08:52 | P.DS_ITS ---
DS: Providers Provider Date of Service: 08/27/25 Date of discharge: 08/27/25 Primary care physician: MABEL Jackson DS: Summary Time Attestation Discharge Coordination Time (in mins): 12 Quality: Safe Use of Opioids Does Pt have an Active Cancer Diagnosis on the Problem List?: No Quality: Stroke Does the patient have a stroke diagnosis?: No Physical Exam Vital Signs: Vital Signs: Last Vital Signs Temp 97.7 F 08/27/25 06:25 Pulse 87 08/27/25 06:25 Resp 16 08/27/25 06:25 BP 134/64 08/27/25 06:25 Pulse Ox 97 08/27/25 06:25 O2 Del Method Room Air 08/27/25 06:25 BMI result Body Mass Index 36.7 Discharge Plan Discharge Patient Disposition: Home, Self-Care Referrals: Brian Bernard FNP-BC [Primary Care Provider, Internal Medicine] - 1 Week Discharge Medications: New oxycodone 5 mg tablet 5 mg PO Q6H PRN (Reason: pain) Qty: 20 0RF Rx Instructions: Partial Fill upon patient request. Continued mirtazapine 7.5 mg tablet 7.5 mg PO BEDTIME PRN (Reason: Anxiety) duloxetine 20 mg capsule,delayed release(DR/EC) 20 mg PO BID PRN (Reason: Anxiety) buspirone 5 mg tablet 5 mg PO BID PRN (Reason: Anxiety) aripiprazole 2 mg tablet 2 mg PO DAILY PRN (Reason: Anxiety) Discharge Orders: Discharge Order (Routine); Ordered 08/27/25 Ordered By: David Kat Diet: Advance to usual diet Activity on Discharge: As tolerated Activity Restrictions/Additional Instructions: After your spinal surgery we ask you to observe the following restrictions/guidelines: Activity: It is normal to feel some discomfort as you increase your activity, but that will improve with time. We ask you avoid heavy lifting or acitivities that cause pain. As a general rule, 8lbs is a safe limit for lifting right after surgery. Walk as much as you feel comfortable but not to exhaustion. You will feel extra tired the first few days after surgery. Stay well hydrated. It is OK to walk up and down stairs You may return to driving when you are off narcotics (such as vicodin, oxycodone, dilaudid, etc), and you are back to normal functional capacity. If you have any concerns please check with office before driving. Return to work is specific to each patient and each surgery, so please speak with your doctor/PA at first follow up. Please bring paperwork such as FMLA at that time if you need it filled out. Medications: We recommend you take 500mg Tylenol every 4 hours for the first week after surgery, if you do not have any liver issues and can tolerate this medication. Do not exceed 4,000mg daily. We also recommend you take Ibuprofen 600mg every 8 hours for the first week after surgery starting on post op day 1, ?if you do not have any kidney or sugar control issues and can tolerate this medication. Do not exceed 2,000mg daily. We will give you a short supply of narcotics after surgery (usually one weeks worth). If you need more please call the office but do not use more than prescribed. You will need to give our office 48 hours notice if you need narcotics refilled and we do not fill narcotics on weekends or evenings. If you are on a narcotic, it is a good idea to take a stool softener such as colace or senna to avoid constipation If you take blood thinner such as aspirin, Plavix, Coumadin, Effient, Eliquis etc for conditions such as Afib, DVT, Pulmonary embolus, coronary disease, stents etc please speak with your surgeon about specific details as to when you can resume these medications. You can resume NSAIDs on post op day 1 (eg: Motrin, Naproxen, etc). Follow up: Please call the office, , after surgery to arrange a 3 week follow up for wound check. Wound Care: You may remove your dressing on the first day after surgery. ?You may ?leave open to air. Please do not remove the steri strips underneath. they will fall off on their own in one week. IT IS NORMAL FOR THE WOUND TO OOZE OR BE BLOODY FOR A FEW DAYS AFTER SURGERY. ?IF THIS HAPPENS JUST PLACE NEW DRESSING OVER IT TO AVOID STAINING CLOTHES. You may shower on post op day # 1 We ask that you do not let the water soak the wound. If it does get wet, just towel dry lightly. Please do not scrub your incision or place any type of chemical/ointment on the wound. No tub baths, pools or jacuzzis for one month. If you have any leaking or redness from your wound, or fevers, please call the office. Print Language: Macedonian
[2025-08-27 09:07] VITALS: BP 129/73; PULSE 105; RESP 16; TEMP 36.1; O2SAT 99
[2025-08-27 09:10] VITALS: BP 120/72; PULSE 108; RESP 16; O2SAT 96
[2025-08-27 09:15] VITALS: BP 138/75; PULSE 106; RESP 12; O2SAT 95
[2025-08-27 09:20] VITALS: BP 109/45; PULSE 100; RESP 13; TEMP 36.1; O2SAT 95
[2025-08-27 09:35] VITALS: BP 104/42; PULSE 98; RESP 15; O2SAT 95
== END 2025-08-27 10:25 | disposition home or self-care (01) ==
PROVIDERS: PCP Nurse Practitioner Family; Visit Provider Neurological Surgery
PROC: (CPT 63047; principal; 2025-08-27 07:30)
DX: M48.062 Spinal stenosis, lumbar region with neurogenic claudication (principal); M54.16 Radiculopathy, lumbar region; M54.9 Dorsalgia, unspecified; Z87.828 Personal history of other (healed) physical injury and trauma; I10 Essential (primary) hypertension; E78.5 Hyperlipidemia, unspecified; F41.8 Other specified anxiety disorders; Z79.899 Other long term (current) drug therapy; Z79.1 Long term (current) use of non-steroidal anti-inflammatories (NSAID); Z87.891 Personal history of nicotine dependence
CPT/HCPCS: 63047; J0131; J0690; J1100; J1171; J1885; J2003; J2371; J2405; J2704; J3010

== ENCOUNTER → 2025-08-27 06:05 | Outpatient (BNV) | payer OTHER, SELFPAY | PROVIDERS: PCP Nurse Practitioner Family; Visit Provider Neurological Surgery | DX: M54.16 Radiculopathy, lumbar region (principal); M48.062 Spinal stenosis, lumbar region with neurogenic claudication | CPT/HCPCS: 63047; 99499 ==

== ENCOUNTER 2025-09-18 09:00 | Outpatient (AMB) | payer OTHER, SELFPAY ==
--- NOTE | 2025-09-18 09:12 | HO.SPINEOV ---
Intake Visit Reasons: 1st post op Intake Note: Mr. Ike Gaffney is here today for his 1st post op. Software Developer Manager Required: Yes Software Developer Manager Language: [employer] Services: Software Developer Manager Present Software Developer Manager Name: Keyla Spears LM Allergies No Known Allergies Allergy (Verified 09/18/25 09:13) Assessment & Plan Assessment & Plan (1) Status post lumbar spine surgery for decompression of spinal cord: Code(s): Z98.890 - Other specified postprocedural states Category: Surgical Plan Operation: Right L4-5 laminotomy, Partial facetectomy and foraminotomy Mr. Ike Gaffney is a pleasant 44 year old male who underwent the above listed procedure by Dr. Barragan to treat severe right sided radiluopathy. He reports that he has had modest improvements of his pain since surgery, but still feels the bulk of his pain is effecting him on a daily basis. In addition to this he has developed some cramping near the thighs since his surgery. Thankfully it sounds like the numbness that he was reporting prior to surgery has resolved. He states he is able to complete the bulk of his ADLs without issue. He did request a refill of his pain medication to help him primarily with sleep and flare-ups of pain throughout the day. We discussed the postoperative healing course, and I explained that he is likely currently experiencing some continued inflammation since surgery which should resolve in the coming weeks. No new neurological deficits. The patient ambulates well and rises from a seated position without much difficulty. He does continue to ambulate with the assistance of a cane. His posterior incision site is closed and well healing no signs of erythema or drainage. I would like to follow up with the patient again in 6 weeks for his 2nd postoperative visit. I will send in a partial refill of his pain medication to the [facility] pharmacy on [address] in [place] per his request. David Barragan MD,PhD [facility] Coding Level of Care Code Global (84778) Diagnoses Status post lumbar spine surgery for decompression of spinal cord Z98.890
== END 2025-09-18 09:22 | disposition home or self-care (01) ==
LOC: HO.HNS 09:01
PROVIDERS: PCP Nurse Practitioner Family; Visit Provider Physician Assistant
DX: Z98.890 Other specified postprocedural states (principal)
CPT/HCPCS: 99024

== ENCOUNTER → 2025-09-18 09:00 | Outpatient (BNVA) | payer OTHER, SELFPAY | PROVIDERS: PCP Nurse Practitioner Family; Visit Provider Physician Assistant | DX: Z47.89 Encounter for other orthopedic aftercare (principal); Z87.39 Personal history of other diseases of the musculoskeletal system and connective tissue; Z98.890 Other specified postprocedural states | CPT/HCPCS: 99212 ==